=== PATIENT | male | born 1950 | race Caucasian/White ===

== ENCOUNTER 2016-02-21 13:28 | Inpatient (IN) | payer OTHER ==
[~2016-02-21] VITALS: Ht 170.2 cm; Wt 75.0 kg
[~2016-02-21 13:28] MED LIST: ALBU2.5V3 NEB; ASPI-664 PO; CARV3.1260 PO; FAMO-18 PO; FER325 PO; LANT3I SC; LISI-313 PO; PARO-37 PO; SIMV20TA97 PO; WARF2TAB78 PO; [UNRECOGNIZED DRUG - CODE] PO
[2016-02-21 13:40] VITALS: Ht 170.2 cm; Wt 75.0 kg
[2016-02-21] MEDS ORDERED: VLP250480 PO (14:34)
[2016-02-21 14:37] LABS: ALBUMIN 2.8 g/dl (3.3-4.9)
[2016-02-21 14:38] LABS: INR 3.52; POTASSIUM 4.5 mmol/L (3.5-5.1); PROTIME 35.8 Sec (12.2-14.2); PT RATIO 2.8
[2016-02-21 14:39] LABS: PARTIAL THROMBOPLASTIN TIME 51.4 Sec (25.0-35.0)
[2016-02-21 14:40] LABS: ALBUMIN/GLOBULIN RATIO 0.75; BILIRUBIN,INDIRECT 0.3 mg/dl (0-1.1); BILIRUBIN,TOTAL 0.3 mg/dl (0.2-1.3); CREATININE 0.97 mg/dl (0.61-1.24); TOTAL PROTEIN 6.5 g/dl (6.1-8.1)
[2016-02-21 14:41] LABS: CALCIUM 8.3 mg/dl (8.4-10.2)
[2016-02-21 14:54] LABS: HEMATOCRIT 24.3 % (42.0-52.0); HEMOGLOBIN 7.9 g/dl (14.0-18.0); MEAN CORPUSCULAR HEMOGLOBIN 30.9 pg (29.0-33.0); MEAN CORPUSCULAR HGB CONC 32.5 g/dl (32.0-37.0); MEAN PLATELET VOLUME 7.9 fl (7.4-10.4); PLATELET COUNT 494 10^3/UL (140-440); RED BLOOD COUNT 2.55 10^6/ul (4.70-6.10); RED CELL DISTRIBUTION WIDTH 16.4 % (11.5-14.5); UNCORRECTED WBC 14.2 10^3/ul (4.8-10.8); WHITE BLOOD COUNT 14.2 10^3/ul (4.8-10.8)
[2016-02-21 15:08] LABS: CONDITION 1; LH ANALYZER COMMENTS 1
--- NOTE | 2016-02-21 15:17 | RADRPT ---
PROCEDURE: XR Femur. CLINICAL INDICATION: Pain TECHNIQUE: AP and lateral views of the left femur were performed. COMPARISON: None. FINDINGS: There is normal mineralization and alignment. There is a intertrochanteric fracture of the right pro ximal femur with minimal displacement . There is joint space narrowing of the right hip. The soft tissues are unremarkable. Vascular calcifications are present. IMPRESSION: 1. Intertrochanteric fracture of the right proximal femur with minimal displacement of the fracture fragments. RPTAT: HSM .Latoya Jose MD, Date Time Electronically viewed and signed by .Latoya Jose MD, on 02/21/2016 15:17 .M/
--- NOTE | 2016-02-21 15:40 | RADRPT ---
PROCEDURE: US Lower extremity Venous. CLINICAL INDICATION: Right leg swelling TECHNIQUE: Multiple sonographic images of the right lower extremity deep venous system was obtaine d utilizing grayscale, color-flow, compressive sonography and doppler imaging with augmentation. Th e images were reviewed on a PACS workstation. COMPARISON: None. FINDINGS: The right common femoral vein and right proximal superficial femoral vein are partially compressible , consistent with partial DVT. There is normal compressibility and flow within the mid and distal superficial femoral, posterior ti bial, peroneal and popliteal veins. RPTAT: AA IMPRESSION: Partial DVT of the right common femoral vein and right proximal superficial femoral vein. A call report was made and the findings discussed with Dr. Urban at 02/21/2016 3:38:40 PM. .Red Ahn MD, MD Date Time Electronically viewed and signed by .Red Ahn MD, MD on 02/21/2016 15:40 .S/
--- NOTE | 2016-02-21 16:20 | ERA ---
ER Documentation Chief Complaint Date/Time DATE: 02/21/16 TIME: 16:14 Chief Complaint YELLOW TINGED SKIN AND SWELLING NOTICED LAST NIGHT ON RT UPPER LEG HPI Patient is a 65-year-old male who is bedridden. He was brought in by his today because she noted that his right lower extremity was yellowish in color and swollen. She does not know why it is like this. She states he has not fallen or had any trauma to the lower extremity. Unfortunately the patient is not able to speak secondary to a prior stroke. She states he has not had any recent fevers, vomiting, or diarrhea. Unfortunately this is the limitation of the patient's history. ROS All systems reviewed and are negative except as per history of present illness. Medications Home Meds Reported Medications Valproic Acid* (Valproic Acid* Liq) 250 Mg/5 Ml Syrup, 500 MG PO TID, ML 02/21/16 Simvastatin* (Zocor*) 20 Mg Tablet, 20 MG PO QHS, #30 TAB 09/11/15 Warfarin Sodium* (Coumadin*) 2 Mg Tablet, 2 MG PO DAILY, TAB 09/11/15 Lisinopril* (Lisinopril*) 5 Mg Tablet, 5 MG PO BID, #30 TAB 09/11/15 Insulin Glargine* (Lantus*) 100 Unit/Ml Soln, 5 UNIT SC HS, EA 12/10/13 Paroxetine Hcl* (Paroxetine*) 20 Mg Tablet, 20 MG PO DAILY, TAB 12/10/13 Ferrous Sulfate* (Ferrous Sulfate*) 325 Mg Tabec, 325 MG PO BID, TAB 12/10/13 Famotidine* (Pepcid*) 20 Mg Tablet, 20 MG PO DAILY, TAB 12/10/13 Aspirin* (Aspirin* EC) 81 Mg Tablet.dr, 81 MG PO DAILY, TAB 12/10/13 Discontinued Reported Medications Albuterol Sulfate* (Albuterol Sulfate* Neb) 0.083%-3 Ml Neb, 2.5 MG NEB Q6 Y for WHEEZING AND SOB, #30 VIAL 09/11/15 Carvedilol* (Carvedilol*) 3.125 Mg Tablet, 3.125 MG PO BID, #60 TAB 09/11/15 Valproic Acid* (Valproic Acid*) 250 Mg Capsule, 500 MG PO TID, CAP 09/11/15 Allergies Allergies: Coded Allergies: No Known Allergy (Verified , 02/21/16) PMhx/Soc History of Surgery: Yes (CABG 2003) Anesthesia Reaction: No Hx Neurological Disorder: Yes (PARALYSIS/APHAGIA S/P STOKE 2007) Hx Respiratory Disorders: No Hx Cardiac Disorders: Yes (HTN HDL) Hx Psychiatric Problems: No Hx Miscellaneous Medical Probl: Yes (DM) Hx Alcohol Use: No Hx Substance Use: No Hx Tobacco Use: Yes Smoking Status: Former smoker FmHx Family History: No diabetes Physical Exam Vitals Vital Signs Date Time Temp Pulse Resp B/P Pulse Ox O2 Delivery O2 Flow Rate FiO2 02/21/16 13:40 98.2 72 18 116/58 99 Physical Exam Const: Well-developed well-nourished male who appears chronically ill lying on the bed in no acute distress Head: Atraumatic normocephalic Eyes: Normal Conjunctiva ENT: Normal External Ears, Nose and Mouth. Resp: Clear to auscultation bilaterally, poor inspiratory effort Cardio: Regular rate and rhythm, no murmurs Abd: Soft, non tender, non distended. Normal bowel sounds Skin: Yellow-green discoloration of the right thigh consistent with an old bruise Ext: No cyanosis, edema of the right femur Neur: Awake Result Diagram: 02/21/16 1359 02/21/16 1359 Results 24 hrs Laboratory Tests Test 02/21/16 13:59 Activated Partial Thromboplast Time 51.4Sec Alanine Aminotransferase (ALT/SGPT) 17IU/L Albumin 2.8g/dl Albumin/Globulin Ratio 0.75 Alkaline Phosphatase 57IU/L Anion Gap 16 Aspartate Amino Transf (AST/SGOT) 17IU/L Blood Morphology Comment Blood Urea Nitrogen 47mg/dl Calcium Level 8.3mg/dl Carbon Dioxide Level 32mmol/L Chloride Level 106mmol/L Creatinine 0.97mg/dl Direct Bilirubin 0.00mg/dl Globulin 3.70g/dl Glucose Level 245mg/dl Hematocrit 24.3% Hemoglobin 7.9g/dl INR International Normalized Ratio 3.52 Indirect Bilirubin 0.3mg/dl Mean Corpuscular Hemoglobin 30.9pg Mean Corpuscular Hemoglobin Concent 32.5g/dl Mean Corpuscular Volume 95.0fl Mean Platelet Volume 7.9fl Platelet Count 11241^3/UL Potassium Level 4.5mmol/L Prothrombin Time 35.8Sec Prothrombin Time Ratio 2.8 Red Blood Count 2.5510^6/ul Red Cell Distribution Width 16.4% Sodium Level 149mmol/L Total Bilirubin 0.3mg/dl Total Protein 6.5g/dl White Blood Count 14.210^3/ul Procedures/MDM Doppler ultrasound revealed acute DVT of the right lower extremity. X-ray of the right femur revealed an intertrochanteric fracture of the right hip. The is at the bedside has been updated of his findings. The orthopedic doctor has been consulted as has hospitalist for admission. Departure Diagnosis: Primary Impression: Femur fracture, right Qualified Code: S72.141A - Closed displaced intertrochanteric fracture of right femur, initial encounter Additional Impressions: Deep vein thrombosis Qualified Code: I82.4Y1 - Acute deep vein thrombosis (DVT) of proximal vein of right lower extremity CVA, old, aphasia Condition: Fair JEREMIAH CHOPRA Feb 21, 2016 16:20
[2016-02-21] MEDS ORDERED: NITROGLYCERIN (SL) 0.4 MG TAB SL PRN (16:30)
[2016-02-21] MEDS ORDERED: LORAZEPAM 2 MG INJ IV PRN ×2 (16:30→19:30)
[2016-02-21] MEDS ORDERED: NA PHOSPHATE/BIPHOS 133 ML ENEMA PR PRN (16:30)
[2016-02-21] MEDS ORDERED: DOCUSATE SODIUM 100 MG CAP PO PRN (16:30)
[2016-02-21] MEDS ORDERED: ALBUTEROL/IPRATROPIUM (NEB) 3 ML AMP HHN PRN (16:30)
[2016-02-21] MEDS ORDERED: NACL 0.9% 3 ML SYG IV SCH (16:30)
[2016-02-21] MEDS ORDERED: ONDANSETRON 4 MG INJ IV PRN ×2 (16:30)
[2016-02-21] MEDS ORDERED: MAGNESIUM HYDROXIDE 30ML CUP PO PRN (16:30)
[2016-02-21] MEDS ORDERED: ACETAMINOPHEN 325 MG TAB PO PRN ×2 (16:30)
[2016-02-21] MEDS ORDERED: HYDROCODONE/APAP (5/325) TAB PO PRN (16:30)
[2016-02-21] MEDS ORDERED: hydrALAzine 20 MG INJ IV PRN (16:30)
[2016-02-21] MEDS ORDERED: GLUCAGON 1 MG INJ IM PRN (17:00)
[2016-02-21] MEDS ORDERED: GLUCOSE GEL 15 GRAM TUBE PO PRN ×2 (17:00)
[2016-02-21] MEDS ORDERED: GLUCOSE GEL 15 GRAM TUBE BUCCAL PRN (17:00)
[2016-02-21] MEDS ORDERED: DEXTROSE 50% 50 ML SYRINGE IV PRN ×2 (17:00)
[2016-02-21 17:49] LABS: BASOPHIL # 0.1 10^3/ul (0.0-0.1); HYPOCHROMASIA 1+; LYMPHOCYTES # 2.4 10^3/ul (0.8-2.9); MONOCYTE # 1.7 10^3/ul (0.3-0.9); NEUTROPHIL # 9.7 10^3/ul (1.6-7.5)
[2016-02-21 18:20] VITALS: BP 134/60; PULSE 69; RESP 16
[2016-02-21] MEDS: SOD CHLORIDE 0.9% 1,000 ML IV SCH (18:36)
[2016-02-21 20:00] VITALS: BP 136/74; PULSE 72; TEMP 98.2
[2016-02-21 20:17] VITALS: BP 130/58; PULSE 74; RESP 18
--- NOTE | 2016-02-21 20:17 | HP ---
DATE OF ADMISSION: 02/21/2016 CHIEF COMPLAINT: Right lower-extremity swelling and yellow skin. HISTORY OF PRESENT ILLNESS: A 65-year-old male with past medical history, based on records, of GERD , high cholesterol, possible seizure disorder, coronary artery disease status post CABG in 2003, hyp ertension, diabetes type 2, and prior stroke. He is bedbound and nonspeaking, who was brought in by because of right lower-extremity swelling and yellow skin. denies any trauma to the area . She does not know why the right lower extremity has been swollen, but she noticed it today and br ought him in. She says he has not fallen at home either. Patient, again, is unable to speak second zohaib to prior stroke. When he came in today, he had x-ray performed of the right lower extremity shanta t showed intertrochanteric fracture of the right proximal femur, with minimal displacement of the fr acture fragments, and the orthopedic surgeon was consulted; still waiting for him to see the patient . Per , the patient did deny fevers and chills, no nonbilious or bloody vomiting. No diarrhea, no constipation. PAST MEDICAL HISTORY: As stated above. ALLERGIES: NO KNOWN DRUG ALLERGIES. MEDICATIONS AT HOME: 1. Warfarin 2 mg daily. 2. Ferrous sulfate 325 mg b.i.d. 3. Lisinopril 5 mg b.i.d. 4. Zocor 20 mg at bedtime. 5. Aspirin 81 mg daily. 6. Paroxetine 20 mg daily. 7. Valproic acid 500 mg t.i.d. 8. Pepcid 20 mg daily. 9. Lantus 5 units subQ at bedtime. PAST SURGICAL HISTORY: A CABG back in 2003. SOCIAL HISTORY: Former smoker. Negative for IV drug abuse or alcohol. FAMILY HISTORY: Noncontributory. PHYSICAL EXAMINATION: VITAL SIGNS: T-max 98.2, pulse 72, respirations 18, blood pressure 116/58, saturating at 98% on sapphire m air. GENERAL: The patient is lying in bed sleeping presently. HEENT: Pupils equal, round, react to light. Extraocular muscles intact. NECK: Supple, no thyromegaly. LUNGS: Clear to auscultation bilaterally. CARDIOVASCULAR: S1, S2 heard. No rubs or gallops. ABDOMEN: Soft, nontender, nondistended. Normal bowel sounds. No rebound or guarding. MUSCULOSKELETAL: There is some swelling and decreased range of motion of the right lower extremity, with some yellow-green discoloration of the right thigh. No lower-extremity edema bilaterally. NEUROLOGIC: No focal deficits. LABORATORIES: WBC 14.2, hemoglobin 7.9, hematocrit 24.3, platelets 494,000. Sodium 149, potassium 4.5, chloride 106, CO2 32, BUN 47, creatinine 0.97, glucose 245. Lactic acid was not monitored. LF Ts are normal. There is also a lower extremity Doppler study that shows partial DVT in the right co mmon femoral vein and right proximal superficial femoral vein, as well. ASSESSMENT AND PLAN: This is a 65-year-old male coming in with right lower extremity swelling, with signs of right intertrochanteric femur fracture and partial deep venous thrombosis, as well, in th e right lower extremity. 1. Right lower extremity swelling, again, secondary to fracture and DVT. Admit to med/surg floor. Get an orthopedic surgery consult, pain control medications with [place] and morphine p.r.n., antieme tic control with Zofran. Check TSH, A1c, lipid panel, IV fluids as well. 2. Hypernatremia. We will switch fluids to half-normal saline as well. 3. Lower extremity deep venous thrombosis. Since the patient may undergo orthopedic surgery, will hold off on anticoagulation for now. Patient was taking Coumadin at home, presumably for his stroke . It is unclear if this clot is new. After the surgery, patient will most likely need to be on ant icoagulation for that. 4. History of gastroesophageal reflux disease. Continue Pepcid. 5. History of coronary artery disease with CABG in the past. Continue to monitor for now, monitor vital signs very carefully, hydralazine is written for p.r.n. systolic greater than 160. 6. History of seizure disorder. Again, because we are not sure if the patient fell, although the p atient is on valproic acid, will add Ativan 1 mg IV q.1h. p.r.n. seizure activity, check an EEG as w ell, to make sure there was no seizure activity. 7. Prior stroke. Continue to monitor for now. Will hold aspirin, given the fact the patient may n eed surgery. 8. Gastrointestinal prophylaxis. Again, as mentioned. 9. Deep venous thrombosis prophylaxis. For now, SCDs. Will start the patient on heparin drip or L ovenox after the surgery for the lower-extremity clot, as well. Get PT, OT consults as well. Dictated By: ENID LLAMAS/AVNI Conf#: [id number] DID#: [id number]
[2016-02-21] MEDS: VALPROIC ACID LIQUID CUP 250 MG/5 ML CUP PO SCH (21:05)
[2016-02-21] MEDS: FERROUS SULFATE (EC) 325 MG TAB PO SCH (21:05)
[2016-02-21] MEDS: ATORVASTATIN 10 MG TAB PO SCH (21:05)
[2016-02-21] MEDS: INSULIN GLARGINE [LANtus] 3 ML PEN SC SCH (21:08)
[2016-02-21] MEDS: INSULIN ASPART [NOVOLOG] 3 ML PEN SC SCH (21:10)
[2016-02-22] VITALS (8 sets, daily range): BP systolic 119–151; BP diastolic 58–70; PULSE 62–68; RESP 16–20
[2016-02-22] MEDS: INSULIN ASPART [NOVOLOG] 3 ML PEN SC SCH ×6 (01:20→20:18)
[2016-02-22] MEDS: SOD CHLORIDE 0.9% 1,000 ML IV SCH (03:00)
[2016-02-22] MEDS: morphine 2 MG INJ IV PRN ×2 (04:12→22:26)
[2016-02-22 05:50] LABS: INR 3.15; PROTIME 32.8 Sec (12.2-14.2); PT RATIO 2.6
[2016-02-22 06:03] LABS: BASOPHILS % 0.3 % (0.0-2.0); EOSINOPHILS # 0.2 10^3/ul (0.0-0.5); EOSINOPHILS % 1.4 % (0.0-7.0); HEMATOCRIT 24.1 % (42.0-52.0); HEMOGLOBIN 8.1 g/dl (14.0-18.0); LYMPHOCYTES # 2.9 10^3/ul (0.8-2.9); LYMPHOCYTES % 23.6 % (15.0-51.0); MEAN CORPUSCULAR HGB CONC 33.5 g/dl (32.0-37.0); MEAN CORPUSCULAR VOLUME 95.5 fl (82.0-101.0); MEAN PLATELET VOLUME 7.7 fl (7.4-10.4); MONOCYTE # 1.8 10^3/ul (0.3-0.9); MONOCYTES % 14.4 % (0.0-11.0); NEUTROPHIL # 7.5 10^3/ul (1.6-7.5); NEUTROPHILS % 60.3 % (39.0-77.0); PLATELET COUNT 497 10^3/UL (140-440); RED BLOOD COUNT 2.53 10^6/ul (4.70-6.10); RED CELL DISTRIBUTION WIDTH 16.1 % (11.5-14.5); UNCORRECTED WBC 12.4 10^3/ul (4.8-10.8); WHITE BLOOD COUNT 12.4 10^3/ul (4.8-10.8)
[2016-02-22 06:15] LABS: CONDITION 1; LH ANALYZER COMMENTS 1
[2016-02-22 06:28] LABS: THYROID STIMULATING HORMONE 3.86 MIU/L (0.465-4.680)
[2016-02-22 07:39] LABS: POTASSIUM 4.6 mmol/L (3.5-5.1)
[2016-02-22 07:42] LABS: CREATININE 0.75 mg/dl (0.61-1.24)
[2016-02-22 07:43] LABS: CALCIUM 8.4 mg/dl (8.4-10.2); MAGNESIUM 2.6 mg/dl (1.7-2.5); PHOSPHORUS 3.8 mg/dl (2.5-4.9)
[2016-02-22] MEDS: FAMOTIDINE 20 MG TAB PO SCH (08:56)
[2016-02-22] MEDS: PAROXETINE 20 MG TAB PO SCH (08:56)
[2016-02-22] MEDS: FERROUS SULFATE (EC) 325 MG TAB PO SCH ×2 (08:56→20:22)
[2016-02-22] MEDS: VALPROIC ACID LIQUID CUP 250 MG/5 ML CUP PO SCH ×3 (08:57→20:22)
[2016-02-22] MEDS ORDERED: WARFARIN 2 MG TAB PO SCH (09:00)
[2016-02-22] MEDS ORDERED: ASPIRIN (EC) 81 MG TAB PO SCH (09:00)
[2016-02-22] MEDS: DEXTROSE 5% 1,000 ML IV SCH (10:40)
--- NOTE | 2016-02-22 10:42 | PN ---
Date/Time of Note Date/Time of Note DATE: 02/22/16 TIME: 10:39 Assessment/Plan VTE Prophylaxis VTE Prophylaxis Intervention: SCD's Lines/Catheters IV Catheter Type (from Nrs): Peripheral IV Urinary Cath still in place: No Assessment/Plan Chief Complaint/Hosp Course ASSESSMENT AND PLAN: 65-year-old male coming in with right lower extremity swelling, with signs of right intertrochanteric femur fracture and partial deep venous thrombosis, as well, in the right lower extremity. 1. Right lower extremity swelling, again, secondary to fracture and DVT. - f/u orthopedic surgery consult rec's, - pain control medications with [place] and morphine p.r.n., antiemetic control with Zofran. - f/u TSH, A1c, lipid panel, IV fluids as well. 2. Hypernatremia - still present - switch to D5W IVF's, monitor Na levels. 3. Lower extremity deep venous thrombosis. Patient was taking Coumadin at home , presumably for his stroke. It is unclear if this clot is new. - Since the patient may undergo orthopedic surgery, will hold off on anticoagulation for now. - will also order for IVC filter placement. - consider anticoagulation after surgery 4. History of gastroesophageal reflux disease. Continue Pepcid. 5. History of coronary artery disease with CABG in the past. - Continue to monitor for now, monitor vital signs very carefully, hydralazine is written for p.r.n. systolic greater than 160. 6. History of seizure disorder. Again, because we are not sure if the patient fell, although the patient is on valproic acid, will add Ativan 1 mg IV q.1h. p.r.n. seizure activity, check an EEG as well, to make sure there was no seizure activity. 7. Prior stroke. Continue to monitor for now. Will hold aspirin, given the fact the patient may need surgery. 8. Gastrointestinal prophylaxis. Again, as mentioned. 9. Deep venous thrombosis prophylaxis. For now, SCDs. Will start the patient on heparin drip or Lovenox after the surgery for the lower-extremity clot, as well. Get PT, OT consults as well. Problems: Subjective 24 Hr Interval Summary Free Text/Dictation No acute events overnight, awaiting ortho consult. Exam/Review of Systems Vital Signs Vitals Vital Signs Date Time Temp Pulse Resp B/P Pulse Ox O2 Delivery O2 Flow Rate FiO2 1/8/17 07:34 97.7 62 18 128/58 97 02/21/16 20:17 Room Air Intake and Output 02/21/16 02/21/16 02/22/16 15:00 23:00 07:00 Intake Total 1300 ml Output Total 200 ml 1500 ml Balance -200 ml -200 ml Exam GENERAL: The patient is lying in bed sleeping presently. HEENT: Pupils equal, round, react to light. Extraocular muscles intact. NECK: Supple, no thyromegaly. LUNGS: Clear to auscultation bilaterally. CARDIOVASCULAR: S1, S2 heard. No rubs or gallops. ABDOMEN: Soft, nontender, nondistended. Normal bowel sounds. No rebound or guarding. MUSCULOSKELETAL: There is some swelling and decreased range of motion of the right lower extremity, with some yellow-green discoloration of the right thigh. No lower-extremity edema bilaterally. NEUROLOGIC: No focal deficits. Results Result Diagram: 02/22/16 0457 02/22/16 0457 Results 24 hrs Laboratory Tests Test 02/21/16 13:50 02/21/16 13:59 02/21/16 18:19 02/21/16 20:57 Free Thyroxine 1.23 Activated Partial Thromboplast Time 51.4 H Alanine Aminotransferase (ALT/SGPT) 17 Albumin 2.8 L Albumin/Globulin Ratio 0.75 Alkaline Phosphatase 57 Anion Gap 16 Aspartate Amino Transf (AST/SGOT) 17 Band Neutrophils % 2.0 Basophils # 0.1 Basophils % 1.0 Blood Morphology Comment Blood Urea Nitrogen 47 H Calcium Level 8.3 L Carbon Dioxide Level 32 H Chloride Level 106 Creatinine 0.97 Direct Bilirubin 0.00 Globulin 3.70 H Glucose Level 245 H Hematocrit 24.3 L Hemoglobin 7.9 L Hypochromasia 1+ INR International Normalized Ratio 3.52 Indirect Bilirubin 0.3 Lymphocytes # 2.4 Lymphocytes % 17.0 Macrocytosis 1+ Mean Corpuscular Hemoglobin 30.9 Mean Corpuscular Hemoglobin Concent 32.5 Mean Corpuscular Volume 95.0 Mean Platelet Volume 7.9 Monocytes # 1.7 H Monocytes % 12.0 H Neutrophils # 9.7 H Neutrophils % 68.0 Platelet Count 494 #H Potassium Level 4.5 Prothrombin Time 35.8 H Prothrombin Time Ratio 2.8 Red Blood Count 2.55 L Red Cell Distribution Width 16.4 H Sodium Level 149 H Total Bilirubin 0.3 Total Protein 6.5 White Blood Count 14.2 #H Bedside Glucose 249 H 235 H Test 02/22/16 01:16 02/22/16 04:39 02/22/16 04:57 02/22/16 08:55 Bedside Glucose 185 140 119 Anion Gap 14 Basophils # 0.0 Basophils % 0.3 Blood Morphology Comment Blood Urea Nitrogen 39 H Calcium Level 8.4 Carbon Dioxide Level 31 Chloride Level 110 Cholesterol Level 88 L Cholesterol/HDL Ratio 4.0 Creatinine 0.75 Eosinophils # 0.2 Eosinophils % 1.4 Glucose Level 122 # HDL Cholesterol 22 L Hematocrit 24.1 L Hemoglobin 8.1 L Hemoglobin A1c 5.9 INR International Normalized Ratio 3.15 LDL Cholesterol, Calculated 47 Lymphocytes # 2.9 Lymphocytes % 23.6 Magnesium Level 2.6 H Mean Corpuscular Hemoglobin 32.0 Mean Corpuscular Hemoglobin Concent 33.5 Mean Corpuscular Volume 95.5 Mean Platelet Volume 7.7 Monocytes # 1.8 H Monocytes % 14.4 H Neutrophils # 7.5 Neutrophils % 60.3 Nucleated Red Blood Cells # 0.0 Nucleated Red Blood Cells % 0.0 Phosphorus Level 3.8 Platelet Count 497 H Potassium Level 4.6 Prothrombin Time 32.8 H Prothrombin Time Ratio 2.6 Red Blood Count 2.53 L Red Cell Distribution Width 16.1 H Sodium Level 150 H Thyroid Stimulating Hormone (TSH) 3.860 Triglycerides Level 93 White Blood Count 12.4 H Medications Medications Current Medications Ondansetron HCl (Zofran Inj) 4 mg Q6H PRN IV NAUSEA AND/OR VOMITING; Start 02/20 at 16:30 Acetaminophen (Tylenol Tab) 650 mg Q6H PRN PO PAIN LEVEL 1-3 OR FEVER; Start at 16:30 Acetaminophen/ Hydrocodone Bitart ([place] (5/325)) 1 tab Q6H PRN PO MODERATE PAIN LEVEL 4-6; Start 02/21/16 at 16:30 Morphine Sulfate (morphine) 2 mg Q4H PRN IV SEVERE PAIN LEVEL 7-10 Last administered on 02/22/16t 04:12; Admin Dose 2 MG; Start 02/21/16 at 16:30 Docusate Sodium (Colace) 100 mg Q12H PRN PO CONSTIPATION; Start 02/21/16 at 16: 30 Magnesium Hydroxide (Milk Of Mag) 30 ml DAILY PRN PO CONSTIPATION; Start at 16:30 Sodium Biphosphate/ Sodium Phosphate (Fleet Enema) [address] CONSTIPATION; Start 02/21/16 at 16:30 Hydralazine HCl (Apresoline) 10 mg Q6H PRN IV ELEVATED BLOOD PRESSURE; Start at 16:30 Clonidine (Catapres) 0.1 mg Q6H PRN PO ELEVATED BLOOD PRESSURE; Start 02/21/16 at 16:30 Nitroglycerin (Nitroglycerin (Sl Tab) 0.4 Mg) 1 tab Q5M PRN SL ANGINA; Start at 16:30 Insulin Aspart (Novolog Insulin Pen) NOVOLOG *MILD* ALGORI... Q4 SC Last administered on 02/22/16 01:20; Admin Dose 2 UNIT; Start 02/21/16 at 17:00 Famotidine (Pepcid) 20 mg DAILY PO Last administered on 02/22/16 08:56; Admin Dose 20 MG; Start 02/22/16 at 09:00 Ferrous Sulfate (Ferrous Sulfate (Ec)) 325 mg BID PO Last administered on 08:56; Admin Dose 325 MG; Start 02/21/16 at 21:00 Insulin Glargine (Lantus) 10 unit HS SC Last administered on 02/21/16 21:08; Admin Dose 10 UNIT; Start 02/21/16 at 21:00 Paroxetine HCl (Paxil) 20 mg DAILY PO Last administered on 02/22/16 08:56; Admin Dose 20 MG; Start 02/22/16 at 09:00 Valproate Sodium (Depakene Liquid Cup) 500 mg TID PO Last administered on 08:57; Admin Dose 500 MG; Start 02/21/16 at 21:00 Atorvastatin Calcium (Lipitor) 10 mg QHS PO Last administered on 02/21/16 21:05 ; Admin Dose 10 MG; Start 02/21/16 at 21:00 Miscellaneous Information 1 ea NOTE XX ; Start 02/21/16 at 17:00 Glucose (Glutose) 15 gm Q15M PRN PO DECREASED GLUCOSE; Start 02/21/16 at 17:00 Glucose (Glutose) 22.5 gm Q15M PRN PO DECREASED GLUCOSE; Start 02/21/16 at 17:00 Dextrose (D50w Syringe) 25 ml Q15M PRN IV DECREASED GLUCOSE; Start 02/21/16 at 17:00 Dextrose (D50w Syringe) 50 ml Q15M PRN IV DECREASED GLUCOSE; Start 02/21/16 at 17:00 Glucagon (Glucagen) 1 mg Q15M PRN IM DECREASED GLUCOSE; Start 02/21/16 at 17:00 Glucose (Glutose) 15 gm Q15M PRN BUCCAL DECREASED GLUCOSE; Start 02/21/16 at 17: 00 Lorazepam 1 mg 1 mg Q1H PRN IV SEIZURES; Start 02/21/16 at 19:30 Dextrose (D5W) 1,000 ml @ 75 mls/hr [id number] IV ; Start 02/22/16 at 10:30 ENID MILLIGAN Feb 22, 2016 10:42
[2016-02-22] MEDS ORDERED: SOD CHLORIDE 0.9% 250 ML IV* ONE ×2 (11:14→12:20)
--- NOTE | 2016-02-22 11:24 | OPR ---
DATE OF OPERATION: 02/21/2016 ORTHOPEDIC CONSULTATION REQUESTING PHYSICIAN: Dr. Lopez CHIEF COMPLAINT: Right hip pain. HISTORY OF PRESENT ILLNESS: The patient is a 65-year-old male who sustained a fall, complaining of pain, stiffness, and limited ambulation with the right hip. The patient's past history is complicat ed with comorbidities including a DVT in the right lower extremity with swelling present. The patie nt has been on Coumadin for anticoagulation. Upon admission, the patient has an INR of 3.52 and hem oglobin of 7.9. PHYSICAL EXAMINATION: GENERAL: He is comfortable. NEUROVASCULAR: Status intact. EXTREMITIES: There is swelling in the right thigh. Compartments are soft. IMAGING DATA: X-ray is reviewed showing nondisplaced trochanteric fracture. RECOMMENDATION: The patient will require surgery consisting of intramedullary nailing of the right femur. The patient is at high-risk for surgery given the fact that he has a DVT in this leg. I have spoken to the hospitalist about the risks of complications for DVT and pulmonary embolus. T he patient needs to have normal coagulation parameters prior to surgery with normal INR. He may nee d to have an IVC filter prior to surgery to prevent pulmonary embolus. He also needs to have a bloo d transfusion for the low hemoglobin. I explained these findings to the patient, and we will await medical clearance before surgery. Dictated By: YOLI TELLES/AVNI Conf#: [id number] DID#: [id number]
[2016-02-22] MEDS: ATORVASTATIN 10 MG TAB PO SCH (20:22)
[2016-02-22] MEDS: INSULIN GLARGINE [LANtus] 3 ML PEN SC SCH (20:24)
[2016-02-23] VITALS (11 sets, daily range): BP systolic 123–160; BP diastolic 58–73; PULSE 57–67; RESP 16–17
[2016-02-23] MEDS: INSULIN ASPART [NOVOLOG] 3 ML PEN SC SCH ×6 (01:00→21:00)
[2016-02-23] MEDS: DEXTROSE 5% 1,000 ML IV SCH ×2 (02:29→13:10)
[2016-02-23] MEDS: morphine 2 MG INJ IV PRN (02:38)
[2016-02-23 05:21] LABS: INR 2.22; PROTIME 24.9 Sec (12.2-14.2); PT RATIO 1.9
[2016-02-23 08:08] LABS: POTASSIUM 5.1 mmol/L (3.5-5.1)
[2016-02-23 08:10] LABS: CREATININE 0.51 mg/dl (0.61-1.24)
[2016-02-23 08:11] LABS: BASOPHIL # 0.1 10^3/ul (0.0-0.1); BASOPHILS % 0.7 % (0.0-2.0); CALCIUM 8.1 mg/dl (8.4-10.2); EOSINOPHILS # 0.3 10^3/ul (0.0-0.5); HEMATOCRIT 33.2 % (42.0-52.0); HEMOGLOBIN 11.1 g/dl (14.0-18.0); LYMPHOCYTES # 2.7 10^3/ul (0.8-2.9); LYMPHOCYTES % 18.9 % (15.0-51.0); MEAN CORPUSCULAR HEMOGLOBIN 30.4 pg (29.0-33.0); MEAN CORPUSCULAR HGB CONC 33.5 g/dl (32.0-37.0); MEAN CORPUSCULAR VOLUME 90.7 fl (82.0-101.0); MONOCYTE # 1.8 10^3/ul (0.3-0.9); MONOCYTES % 12.7 % (0.0-11.0); NEUTROPHIL # 9.3 10^3/ul (1.6-7.5); NEUTROPHILS % 65.7 % (39.0-77.0); PLATELET COUNT 355 10^3/UL (140-440); RED BLOOD COUNT 3.66 10^6/ul (4.70-6.10); RED CELL DISTRIBUTION WIDTH 17.1 % (11.5-14.5); UNCORRECTED WBC 14.2 10^3/ul (4.8-10.8); WHITE BLOOD COUNT 14.2 10^3/ul (4.8-10.8)
[2016-02-23 08:21] LABS: CONDITION 1; LH ANALYZER COMMENTS 1
[2016-02-23] MEDS: FERROUS SULFATE (EC) 325 MG TAB PO SCH ×2 (09:00→21:23)
[2016-02-23] MEDS: VALPROIC ACID LIQUID CUP 250 MG/5 ML CUP PO SCH ×3 (09:42→21:23)
[2016-02-23] MEDS: FAMOTIDINE 20 MG TAB PO SCH (09:42)
[2016-02-23] MEDS: PAROXETINE 20 MG TAB PO SCH (09:43)
--- NOTE | 2016-02-23 12:18 | PN ---
Date/Time of Note Date/Time of Note DATE: 02/23/16 TIME: 12:03 Assessment/Plan VTE Prophylaxis VTE Prophylaxis Intervention: heparin Lines/Catheters IV Catheter Type (from Nrs): Peripheral IV Urinary Cath still in place: No Assessment/Plan Assessment/Plan Unfortunate chronically encephalopathic and bedbound 65 yo M with 1. Intertrochanteric fracture of the right proximal femur with minimal displacement Per , she does not recall any hx of trauma / patient has been bedbound since 2007 / we discussed risks versus benefits of proceeding with surgery / she will speak more with ortho and make a decision 2. RLE DVT: planned for IVC filter placement today , then will begin therapeutic anticoagulation with heparin which can be d/c 4-6hrs before hip surgery if they choose to proceed. 3. Chronic encephalopathy from prev CVA ST eval pending for speech assay / patient non verbal 4. Prev AR + hx of CAD s/p Cath +CABG in the past will get cardio consult as well as possible echo for cardiac clearance 5. Supratherapeutic INR Coumadin on hold / INR improving / continue close monitoring / indication unclear, will clarify 6. Leucocytosis: ?reactive from fracture Will get CXR to r/o aspiration / UA to r/o occult UTI / trend levels / no abx for now 7. Hypernatremia: ?improving / ?2/2 dehydration close monitoring / D5 8. NC anemia 2/2 chronic disease improved with transfusion / monitor Dispo: -continue supportive care / IVC filter today / more testing / cardio consult. Subjective 24 Hr Interval Summary Free Text/Dictation Patient seen and examined. spoke with in detail Subjective hx not possible: pt non-verbal Exam/Review of Systems Vital Signs Vitals Vital Signs Date Time Temp Pulse Resp B/P Pulse Ox O2 Delivery O2 Flow Rate FiO2 02/23/16 07:57 98.3 64 17 135/64 94 02/23/16 03:27 Room Air 02/22/16 19:59 2.0 Intake and Output 02/22/16 02/22/16 02/23/16 15:00 23:00 07:00 Intake Total 900 ml 0 ml 268 ml Output Total 4 ml 2 ml Balance 900 ml -4 ml 266 ml Exam Constitutional: alert, frail, non-verbal Psych: anxiety Head: atraumatic Eyes: PERRL ENMT: No mucosa pink and moist (dry) Respiratory: diminished breath sounds, No labored breathing Cardiovascular: regular rate and rhythm, No murmurs/extra sounds Gastrointestinal: bowel sounds, non-tender, soft Genitourinary - Male: nl penis, nl scrotum Musculoskeletal: joint tenderness Extremities: No edema Neurological: focal weakness (reported L sided paresis, but patient does not move any extremities for me. Patienr said not to have ambulated since 2007), No nl mental status, No nl speech, No nl strength Results Result Diagram: 02/23/16 0734 02/23/16 0734 Results 24 hrs Laboratory Tests Test 02/22/16 12:22 02/22/16 16:27 02/22/16 20:16 02/23/16 01:59 Bedside Glucose 128 136 135 119 Test 02/23/16 04:27 02/23/16 05:11 02/23/16 07:34 02/23/16 08:10 INR International Normalized Ratio 2.22 Prothrombin Time 24.9 #H Prothrombin Time Ratio 1.9 Bedside Glucose 116 121 Anion Gap 14 Basophils # 0.1 Basophils % 0.7 Blood Morphology Comment Blood Urea Nitrogen 27 #H Calcium Level 8.1 L Carbon Dioxide Level 31 Chloride Level 108 Creatinine 0.51 L Eosinophils # 0.3 Eosinophils % 2.0 Glucose Level 107 Hematocrit 33.2 #L Hemoglobin 11.1 #L Lymphocytes # 2.7 Lymphocytes % 18.9 Mean Corpuscular Hemoglobin 30.4 Mean Corpuscular Hemoglobin Concent 33.5 Mean Corpuscular Volume 90.7 Mean Platelet Volume 8.0 Monocytes # 1.8 H Monocytes % 12.7 H Neutrophils # 9.3 H Neutrophils % 65.7 Nucleated Red Blood Cells # 0.0 Nucleated Red Blood Cells % 0.0 Platelet Count 355 # Potassium Level 5.1 Red Blood Count 3.66 #L Red Cell Distribution Width 17.1 H Sodium Level 148 H White Blood Count 14.2 H Medications Medications Current Medications Ondansetron HCl (Zofran Inj) 4 mg Q6H PRN IV NAUSEA AND/OR VOMITING; Start 02/20 at 16:30 Acetaminophen (Tylenol Tab) 650 mg Q6H PRN PO PAIN LEVEL 1-3 OR FEVER; Start at 16:30 Acetaminophen/ Hydrocodone Bitart ([place] (5/325)) 1 tab Q6H PRN PO MODERATE PAIN LEVEL 4-6; Start 02/21/16 at 16:30 Morphine Sulfate (morphine) 2 mg Q4H PRN IV SEVERE PAIN LEVEL 7-10 Last administered on 02/23/16 02:38; Admin Dose 2 MG; Start 02/21/16 at 16:30 Docusate Sodium (Colace) 100 mg Q12H PRN PO CONSTIPATION; Start 02/21/16 at 16: 30 Magnesium Hydroxide (Milk Of Mag) 30 ml DAILY PRN PO CONSTIPATION; Start at 16:30 Sodium Biphosphate/ Sodium Phosphate (Fleet Enema) 133 ml DAILY PRN MO CONSTIPATION; Start 02/21/16 at 16:30 Hydralazine HCl (Apresoline) 10 mg Q6H PRN IV ELEVATED BLOOD PRESSURE; Start at 16:30 Clonidine (Catapres) 0.1 mg Q6H PRN PO ELEVATED BLOOD PRESSURE; Start 02/21/16 at 16:30 Nitroglycerin (Nitroglycerin (Sl Tab) 0.4 Mg) 1 tab Q5M PRN SL ANGINA; Start at 16:30 Insulin Aspart (Novolog Insulin Pen) NOVOLOG *MILD* ALGORI... Q4 SC Last administered on 02/22/16 01:20; Admin Dose 2 UNIT; Start 02/21/16 at 17:00 Famotidine (Pepcid) 20 mg DAILY PO Last administered on 02/23/16 09:42; Admin Dose 20 MG; Start 02/22/16 at 09:00 Ferrous Sulfate (Ferrous Sulfate (Ec)) 325 mg BID PO Last administered on 20:22; Admin Dose 325 MG; Start 02/21/16 at 21:00 Insulin Glargine (Lantus) 10 unit HS SC Last administered on 02/22/16 20:24; Admin Dose 10 UNIT; Start 02/21/16 at 21:00 Paroxetine HCl (Paxil) 20 mg DAILY PO Last administered on 02/23/16 09:43; Admin Dose 20 MG; Start 02/22/16 at 09:00 Valproate Sodium (Depakene Liquid Cup) 500 mg TID PO Last administered on 09:42; Admin Dose 500 MG; Start 02/21/16 at 21:00 Atorvastatin Calcium (Lipitor) 10 mg QHS PO Last administered on 02/22/16 20:22 ; Admin Dose 10 MG; Start 02/21/16 at 21:00 Miscellaneous Information 1 ea NOTE XX ; Start 02/21/16 at 17:00 Glucose (Glutose) 15 gm Q15M PRN PO DECREASED GLUCOSE; Start 02/21/16 at 17:00 Glucose (Glutose) 22.5 gm Q15M PRN PO DECREASED GLUCOSE; Start 02/21/16 at 17:00 Dextrose (D50w Syringe) 25 ml Q15M PRN IV DECREASED GLUCOSE; Start 02/21/16 at 17:00 Dextrose (D50w Syringe) 50 ml Q15M PRN IV DECREASED GLUCOSE; Start 02/21/16 at 17:00 Glucagon (Glucagen) 1 mg Q15M PRN IM DECREASED GLUCOSE; Start 02/21/16 at 17:00 Glucose (Glutose) 15 gm Q15M PRN BUCCAL DECREASED GLUCOSE; Start 02/21/16 at 17: 00 Lorazepam 1 mg 1 mg Q1H PRN IV SEIZURES; Start 02/21/16 at 19:30 Dextrose (D5W) 1,000 ml @ 75 mls/hr [id number] IV Last administered on 02/23/16 02:29; Admin Dose 75 MLS/HR; Start 02/22/16 at 10:30 DICKSON HONG Feb 23, 2016 12:15
[2016-02-23] MEDS ORDERED: SOD CHLORIDE 0.9% 500 ML ONE (13:21)
[2016-02-23] MEDS ORDERED: IODIXANOL LOCM 100 ML BTL ONE (13:21)
[2016-02-23] MEDS ORDERED: LIDOCAINE 1% (MDV) 20 ML INJ ONE (13:21)
--- NOTE | 2016-02-23 15:54 | RADRPT ---
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 Physician: ENID MILLIGAN Quality: Adequate Procedures: Transthoracic echocardiogram with 2D, M-Mode, and Doppler examination, no subcostal images. Indications: Shortness of breath. 2D/M Mode Doppler Measurement Value Normal Ranges Measurement Value Normal Ranges AoR Diam MM 3.2 cm AV Peak Jeramy 1.6 m/sec ACS MM 2.1 cm AV Peak PG 10.4 mmHg LVIDd 2D 3.8 3.5 - 5.6 cm LVOT Peak Jeramy 1.1 m/sec LVIDs 2D 2.5 2.1 - 4.1 cm LVOT Peak PG 4.9 mmHg LVPWd 2D 1.2 0.6 - 1.1 cm MV E Peak Jeramy 0.6 m/sec IVSd 2D 1.2 0.6 - 1.1 cm MV A Peak Jeramy 0.8 m/sec EDV 2D 61.7 cm3 MV E/A 0.7 ESV 2D 16.3 cm3 MV Decel Time 203 msec LA Dimen 2D 3.8 2.3 - 4.0 cm MV Decel Lynn 3 MV E/A 0.7 PV Peak Jeramy 1.3 m/sec PV Peak PG 7.0 mmHg Findings Left Ventricle: Normal left ventricular systolic function. Normal left ventricular cavity size. Mild concentric left ventricular hypertrophy. Ejection fraction is visually estimated at 6065 %. Tissue Doppler/Mitral Doppler indices are consistent with impaired relaxation (Stage I diastolic dysfunction). Right Ventricle: Normal right ventricular size. Normal right ventricular systolic function. Left Atrium: The left atrium is normal in size. Right Atrium: The right atrium is normal in size. Atrial Septum: Not well visualized. Mitral Valve: Minimal mitral annular calcification, mild chordal calcification noted. Trace mitral regurgitation. Aortic Valve: No hemodynamically significant aortic stenosis by doppler. Aortic cusps appear mildly calcified. Trileaflet aortic valve. No aortic regurgitation. Tricuspid Valve: Normal appearance of the tricuspid valve. Unable to obtain RVSP due to minimal presence of tricuspid regurgitation. No evidence of tricuspid regurgitation. Pulmonic Valve: Normal pulmonic valve appearance. No evidence of pulmonic regurgitation. Pericardium: Normal pericardium with no significant pericardial effusion. Aorta: Normal aortic root. IVC: The IVC is not well visualized. Pulmonary Artery: Normal pulmonary artery size. Conclusions 1.The left ventricle is normal in size and systolic function. 2.Estimated left ventricular ejection fraction of 60-65%. 3.Mild concentric left ventricular hypertrophy. Mild left ventricular diastolic dysfunction. Electronically Signed By: Home Schmidt 23-Feb-2016 15:53:16 -0800 Patient Name: SUSAN PADILLA Study Date: 22-Feb-2016 [id number]
--- NOTE | 2016-02-23 16:12 | RADRPT ---
PROCEDURE: XR Chest. CLINICAL INDICATION: Preoperative. TECHNIQUE: Single frontal view. COMPARISON: 09/11/2015. FINDINGS: There is mild atelectasis at the lung bases, left worse than right. The lungs are otherwise clear. The heart is enlarged. There is calcification in the aorta consistent with atherosclerosis. There are sternal wires. There is no pleural effusion. There is no pneumothorax. IMPRESSION: 1. Mild atelectasis at the lung bases, left worse than right. 2. Cardiomegaly. 3. Atherosclerosis. 4. Previous median sternotomy. RPTAT: QQ .Navarro Sotelo MD, MD Date Time Electronically viewed and signed by .Navarro Sotelo MD, on 02/23/2016 16:12 .R/
--- NOTE | 2016-02-23 17:29 | RADRPT ---
PROCEDURE: INFERIOR VENA CAVA FILTER PLACEMENT AND INFERIOR VENACAVOGRAM CLINICAL INDICATION: Right lower extremity deep venous thrombosis. TECHNIQUE: The procedure, risks, benefits, complications and alternatives were explained to the patient. Risks including bleeding and infection were explained. In addition, risks regarding the inferior vena cava filter including filter migration, inferior vena cava the perforation, and caval thrombosis were ex plained. The patient understood and was willing to proceed. Consent was obtained. A procedural pause was performed. The patient's name, date of , and procedure to be performed were verified. The left common femoral vein was interrogated with ultrasound. It demonstrates normal compressibilit y without evidence for venous thrombosis. The left inguinal region was prepped and draped. One perce nt lidocaine was used as local anesthesia. A 21 gauge single wall puncture needle was inserted into the left common femoral vein without difficulty. A 0.018 inch guidewire was then advanced through th e needle into the inferior vena cava with fluoroscopic guidance. A 5 Tristanian sheath was then exchange d for the needle. The original guidewire was removed and a 0.035 inch wire was then advanced into th e inferior vena cava with fluoroscopic guidance. The tract was dilated to 10 Tristanian and then the 8 F rench sheath for the inferior vena cava filter was inserted. An inferior venacavogram was performed through the sheath. Multiple digital images were obtained. 0.5 minutes of fluoroscopy time was used. The dilator was then removed. The sheath was flushed with normal saline. The introducer catheter pre loaded with the Argon Option vena cava filter was then advanced. The sheath was retracted. The vena cava filter was then released just below the origin of the renal veins. The introducer catheter was removed. The placement was confirmed by a spot film radiograph. The sheath was removed and pressure was held for approximately 10 minutes with good hemostasis. The patient tolerated the procedure well . COMPARISON: None. FINDINGS: The inferior vena cava is patent without evidence for filling defect to suggest thrombus. It has a n ormal diameter. The origin of the renal veins are at approximately at the upper L2 level. The final image demonstrates the superior tip of the inferior vena cava filter at the upper L2 level . Ultrasound images were recorded and stored in the patient's medical record. The ultrasound images d emonstrate the needle entering the left common femoral vein. IMPRESSION: 1. Inferior venacavogram performed as indicated above. 2. Successful placement of inferior vena cava filter. RPTAT: QQ .Navarro Sotelo MD, MD Date Time Electronically viewed and signed by .Navarro Sotelo MD, MD on 02/23/2016 17:29 .R/
--- NOTE | 2016-02-23 18:09 | CONS ---
DATE OF ADMISSION: 02/21/2016 DATE OF CONSULTATION: 02/23/2016 TYPE OF CONSULTATION: Cardiology. REASON FOR CONSULTATION: Cardiovascular preop evaluation. SURGICAL PROBLEM: Femoral fracture. CHIEF COMPLAINT: Leg swelling. HISTORY OF PRESENT ILLNESS: Thank you for this referral. History was obtained from discussion with his and from extensive review of the chart, discussion with Dr. Hong. This is an unfortunate [age]-year-old gentleman with complicated medical history including history of CVA, currently nonverbal, bedbound, history of coronary artery disease, status post coronary artery bypass graft in 2003, his tory of NE, diabetes. He was noted to have lower extremity swelling and yellow skin. The patient w as brought in to emergency room and workup has shown that the patient has right proximal femoral fra cture. He is being evaluated by orthopedics and is going to be scheduled for surgery pending cardio logy evaluation. Patient also was noted to have right lower extremity DVT. According to the , the patient apparently has had a DVT about 6 months ago. He has been on anticoagulation. INR was a bout 3 on admission. He had an IVC filter placement today as well. The patient himself is nonverba l, unable to give history to me. PAST MEDICAL HISTORY: Coronary artery disease, status post NE, status post bypass surgery in 2003, history of CVA, hypertension, diabetes, dyslipidemia, history of severe reflux disease. The patient overall is bedbound, nonverbal. According to the , he does not recognize her. MEDICATIONS AT HOME INCLUDE: 1. Coumadin. 2. Lisinopril. 3. Zocor. 4. Aspirin. 5. Valproic acid 6. Insulin. SURGICAL HISTORY: Bypass surgery, IVC filter placement. SOCIAL HISTORY: Former smoker. No active tobacco, alcohol or drug abuse. He is bed bound, lives w ith family. FAMILY HISTORY: No reported early coronary artery disease. REVIEW OF SYSTEMS: As above mentioned. PHYSICAL EXAMINATION: VITAL SIGNS: Temperature 98.3, heart rate of 65, blood pressure of 150/70, respiratory rate of 16, saturating 94%. HEENT: Normocephalic, atraumatic. Eyes: Does not open them to stimuli. CARDIOVASCULAR: Regular rate and rhythm. PULMONARY: With no wheezes anteriorly. GASTROINTESTINAL: Obese, soft. EXTREMITIES: Positive lower extremity edema. NEUROLOGIC: Does not answer my questions or verbalize or follow commands. LABORATORY DATA: WBC of 14.2, hemoglobin of 7.9 on admission, up to 11.1 now. Platelets of 355. I NR is 3.5 on admission, down to 2.2 today, sodium 148, potassium 5.1, BUN of 27, creatinine 0.5, glu cose 107. Ultrasound of lower extremity showed partial DVT of the right common femoral vein. DIAGNOSTIC DATA: Chest x-ray today shows mild atelectasis, left worse than right, cardiomegaly. Pr ior sternotomy. Femoral x-ray shows right proximal femoral with minimal displacement of fracture se gments. Echocardiogram read by Dr. Moya shows normal LV size and ejection fraction of 60% to 65%, m ild LVH and diastolic dysfunction. ASSESSMENT AND PLAN: 1. Cardiovascular preop evaluation. 2. Femoral neck fracture. 3. History of cerebrovascular accident. 4. History of coronary artery disease 5. History of coronary bypass graft. 6. History of myocardial infarction. 7. Hypertension. 8. Diabetes 9. Dyslipidemia. 10. Deep Venous thrombosis. 11. Status post inferior vena cava filter placement. RECOMMENDATIONS: Anticoagulation is on hold in anticipation for possible surgery. Statin will be c ontinued. Diabetic management as per internal medicine will be continued. We will place the patien t on Coreg to control the blood pressure better. This was discussed with Dr. Hong and patient's wif e in detail. Patient has multiple risk factors which will place him at moderate to high risk of car diovascular event during the surgery. He also has a very poor exercise tolerance and does not walk at all. That will place the patient at moderate to high risk of cardiovascular event. However, no further cardiac workup would be indicated or felt to be beneficial to the patient. Dictated By: JEISON LAI MD AV/NTS Conf#: [id number] DID#: [id number] CC: DICKSON HONG MD;*EndCC*
[2016-02-23] MEDS: ATORVASTATIN 10 MG TAB PO SCH (21:23)
[2016-02-23] MEDS: INSULIN GLARGINE [LANtus] 3 ML PEN SC SCH (21:36)
--- NOTE | 2016-02-23 22:33 | SP ---
DATE OF PROCEDURE: 02/23/2016 ELECTROENCEPHALOGRAM HISTORY: This is a 65-year-old male who is noncommunicative, was admitted and was found to have rig ht femoral fracture. EEG is to rule out encephalopathy. CURRENT MEDICATIONS: Not known. PROCEDURE: Utilizing a 16-channel EEG machine, cap scalp electrodes were applied in accordance with International 10-20 system. [id number] and [id number]-[id number] montages were displayed. Electrical i mpedances were measured and reported. DESCRIPTION: During resting state, posterior dominant rhythm of about 7 to 8 Hz was seen bihemisphe rically. Photic stimulation had a good response. Hyperventilation was not performed. There was no epileptiform activity noted. INTERPRETATION: This is a mildly abnormal electroencephalogram because of bihemispheric background slowing without any epileptiform activity consistent with mild encephalopathy. Please correlate the se findings with the patient's clinical picture. Dictated By: WHITNEY DANIELSON/AVNI Conf#: [id number] DID#: [id number]
[2016-02-24] MEDS: INSULIN ASPART [NOVOLOG] 3 ML PEN SC SCH ×6 (00:43→20:57)
[2016-02-24 01:37] LABS: ADD UMIC YES; URINE BILIRUBIN (Dip) NEGATIVE (NEGATIVE); URINE BLOOD (Dip) 3+ (NEGATIVE); URINE COLOR LT. YELLOW (YELLOW); URINE GLUCOSE (Dip) NEGATIVE (NEGATIVE); URINE KETONES (Dip) NEGATIVE (NEGATIVE); URINE LEUKOCYTE ESTERASE (Dip) NEGATIVE (NEGATIVE); URINE NITRITE (Dip) NEGATIVE (NEGATIVE); URINE TOTAL PROTEIN (Dip) NEGATIVE (NEGATIVE); URINE UROBILINOGEN (Dip) 4.0 E.U./dL (0.1-1.0)
[2016-02-24 02:06] LABS: BACTERIA,URINE OCCASIONAL; SQUAMOUS EPITHELIAL CELL,UR OCCASIONAL; URINE RBCS 25-50 /HPF ([, 0])
[2016-02-24] MEDS: DEXTROSE 5% 1,000 ML IV SCH ×2 (02:30→09:58)
[2016-02-24] MEDS: morphine 2 MG INJ IV PRN (03:11)
[2016-02-24 03:19] VITALS: BP 121/60; RESP 17
[2016-02-24 06:05] LABS: INR 3.33; PARTIAL THROMBOPLASTIN TIME 40.7 Sec (25.0-35.0); PROTIME 34.3 Sec (12.2-14.2); PT RATIO 2.7
[2016-02-24 07:48] VITALS: BP 131/59; RESP 16
[2016-02-24 08:17] LABS: BASOPHILS % 0.3 % (0.0-2.0); EOSINOPHILS # 0.3 10^3/ul (0.0-0.5); EOSINOPHILS % 2.8 % (0.0-7.0); HEMATOCRIT 31.7 % (42.0-52.0); HEMOGLOBIN 10.8 g/dl (14.0-18.0); LYMPHOCYTES # 2.3 10^3/ul (0.8-2.9); LYMPHOCYTES % 23.3 % (15.0-51.0); MEAN CORPUSCULAR HEMOGLOBIN 30.5 pg (29.0-33.0); MEAN CORPUSCULAR HGB CONC 34.1 g/dl (32.0-37.0); MEAN CORPUSCULAR VOLUME 89.5 fl (82.0-101.0); MONOCYTE # 1.7 10^3/ul (0.3-0.9); MONOCYTES % 16.9 % (0.0-11.0); NEUTROPHIL # 5.7 10^3/ul (1.6-7.5); NEUTROPHILS % 56.7 % (39.0-77.0); PLATELET COUNT 524 10^3/UL (140-440); RED BLOOD COUNT 3.54 10^6/ul (4.70-6.10); RED CELL DISTRIBUTION WIDTH 16.4 % (11.5-14.5)
[2016-02-24 08:21] LABS: CONDITION 1; LH ANALYZER COMMENTS 1; POTASSIUM 4.1 mmol/L (3.5-5.1)
[2016-02-24 08:24] LABS: CALCIUM 8.4 mg/dl (8.4-10.2); CREATININE 0.54 mg/dl (0.61-1.24)
[2016-02-24] MEDS: FERROUS SULFATE (EC) 325 MG TAB PO SCH ×2 (09:58→21:26)
[2016-02-24] MEDS: FAMOTIDINE 20 MG TAB PO SCH (09:58)
[2016-02-24] MEDS: VALPROIC ACID LIQUID CUP 250 MG/5 ML CUP PO SCH ×3 (09:58→21:25)
[2016-02-24] MEDS: LISINOPRIL 5 MG TAB PO SCH (09:59)
[2016-02-24] MEDS: PAROXETINE 20 MG TAB PO SCH (14:52)
--- NOTE | 2016-02-24 15:26 | PN ---
Date/Time of Note Date/Time of Note DATE: 02/24/16 TIME: 15:13 Assessment/Plan VTE Prophylaxis VTE Prophylaxis Intervention: other (supratheraputic INR) Lines/Catheters IV Catheter Type (from Nrs): Peripheral IV Urinary Cath still in place: No Assessment/Plan Assessment/Plan Unfortunate chronically encephalopathic and bedbound 65 yo M with 1. Intertrochanteric fracture of the right proximal femur with minimal displacement Per , she does not recall any hx of trauma / patient has been bedbound since 2007 / we discussed risks versus benefits of proceeding with surgery Per Cardio, patient is high risk for surgery. Will await Ortho and family's decision 2. RLE DVT: IVC filter placed successfully, commence anticoagulation if no surgery 3. Chronic encephalopathy from prev CVA patient non verbal / cleared for puree / nectar thick per ST 4. Prev [place] + hx of CAD s/p Cath +CABG in the past No evidence of acute event at this time 5. Supratherapeutic INR Coumadin on hold / INR remains elevated despite being off coumadin / continue close monitoring / no indication to intervene at this time except orto chooses to proceed wt sx. 6. Leucocytosis: reactive from fracture, resolved UA and CXR non suggestive of acute infection 7. Hypernatremia: resolved / ?2/2 dehydration close monitoring / D5 8. NC anemia 2/2 chronic disease improved with transfusion / monitor 9. Diabetes ?type 2: on low dose Lantus Good BS control so far / f/u findings once on a diet 10. 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 Dispo: -continue supportive care /plan to d/c home with HH if no surgery. Subjective 24 Hr Interval Summary Free Text/Dictation Patient seen and examined. Nursing reports no acute overnight events. Subjective hx not possible: pt non-verbal Exam/Review of Systems Vital Signs Vitals Vital Signs Date Time Temp Pulse Resp B/P Pulse Ox O2 Delivery O2 Flow Rate FiO2 02/24/16 07:48 97.3 86 16 131/59 99 02/24/16 03:19 Room Air 02/22/16 19:59 2.0 Intake and Output 02/23/16 02/23/16 02/24/16 15:00 23:00 07:00 Intake Total 920 ml Balance 920 ml Exam Constitutional: alert, frail, non-verbal Psych: anxiety Head: atraumatic Eyes: PERRL ENMT: No mucosa pink and moist (dry) Respiratory: diminished breath sounds, No labored breathing Cardiovascular: regular rate and rhythm, No murmurs/extra sounds Gastrointestinal: bowel sounds, non-tender, soft Genitourinary - Male: nl penis, nl scrotum Musculoskeletal: joint tenderness Extremities: No edema Neurological: focal weakness (reported L sided paresis, but patient does not move any extremities for me. Patienr said not to have ambulated since 2007), No nl mental status, No nl speech, No nl strength Results Result Diagram: 02/24/16 0730 02/24/16 0730 Results 24 hrs Laboratory Tests Test 02/23/16 18:02 02/23/16 21:28 02/24/16 00:23 02/24/16 00:42 Bedside Glucose 117 128 133 Urine Bacteria OCCASIONAL Urine Bilirubin NEGATIVE Urine Clarity CLEAR Urine Color LT. YELLOW Urine Glucose NEGATIVE Urine Hemoglobin 3+ H Urine Ketones NEGATIVE Urine Leukocyte Esterase NEGATIVE Urine Microscopic RBC 25-50 Urine Microscopic WBC 0-2 Urine Nitrite NEGATIVE Urine Specific K[place] 1.015 Urine Squamous Epithelial Cells OCCASIONAL Urine Total Protein NEGATIVE Urine Urobilinogen 4.0 E.U./dL H Urine pH 7.0 Test 02/24/16 04:58 02/24/16 05:13 02/24/16 07:30 02/24/16 08:22 Activated Partial Thromboplast Time 40.7 H INR International Normalized Ratio 3.33 Prothrombin Time 34.3 #H Prothrombin Time Ratio 2.7 Bedside Glucose 122 99 Anion Gap 11 Basophils # 0.0 Basophils % 0.3 Blood Morphology Comment Blood Urea Nitrogen 19 Calcium Level 8.4 Carbon Dioxide Level 32 H Chloride Level 102 Creatinine 0.54 L Eosinophils # 0.3 Eosinophils % 2.8 Glucose Level 93 Hematocrit 31.7 L Hemoglobin 10.8 L Lymphocytes # 2.3 Lymphocytes % 23.3 Mean Corpuscular Hemoglobin 30.5 Mean Corpuscular Hemoglobin Concent 34.1 Mean Corpuscular Volume 89.5 Mean Platelet Volume 7.0 L Monocytes # 1.7 H Monocytes % 16.9 H Neutrophils # 5.7 Neutrophils % 56.7 Nucleated Red Blood Cells # 0.0 Nucleated Red Blood Cells % 0.0 Platelet Count 524 #H Potassium Level 4.1 Red Blood Count 3.54 L Red Cell Distribution Width 16.4 H Sodium Level 141 White Blood Count 10.0 # Test 02/24/16 12:28 Bedside Glucose 94 Medications Medications Current Medications Ondansetron HCl (Zofran Inj) 4 mg Q6H PRN IV NAUSEA AND/OR VOMITING; Start 02/20 at 16:30 Acetaminophen (Tylenol Tab) 650 mg Q6H PRN PO PAIN LEVEL 1-3 OR FEVER; Start at 16:30 Acetaminophen/ Hydrocodone Bitart ([place] (5/325)) 1 tab Q6H PRN PO MODERATE PAIN LEVEL 4-6; Start 02/21/16 at 16:30 Morphine Sulfate (morphine) 2 mg Q4H PRN IV SEVERE PAIN LEVEL 7-10 Last administered on 02/24/16 03:11; Admin Dose 2 MG; Start 02/21/16 at 16:30 Docusate Sodium (Colace) 100 mg Q12H PRN PO CONSTIPATION; Start 02/21/16 at 16: 30 Magnesium Hydroxide (Milk Of Mag) 30 ml DAILY PRN PO CONSTIPATION; Start at 16:30 Sodium Biphosphate/ Sodium Phosphate (Fleet Enema) 133 ml DAILY PRN [place] CONSTIPATION; Start 02/21/16 at 16:30 Hydralazine HCl (Apresoline) 10 mg Q6H PRN IV ELEVATED BLOOD PRESSURE; Start at 16:30 Clonidine (Catapres) 0.1 mg Q6H PRN PO ELEVATED BLOOD PRESSURE; Start 02/21/16 at 16:30 Nitroglycerin (Nitroglycerin (Sl Tab) 0.4 Mg) 1 tab Q5M PRN SL ANGINA; Start at 16:30 Insulin Aspart (Novolog Insulin Pen) NOVOLOG *MILD* ALGORI... Q4 SC Last administered on 02/22/16 01:20; Admin Dose 2 UNIT; Start 02/21/16 at 17:00 Famotidine (Pepcid) 20 mg DAILY PO Last administered on 02/24/16 09:58; Admin Dose 20 MG; Start 02/22/16 at 09:00 Ferrous Sulfate (Ferrous Sulfate (Ec)) 325 mg BID PO Last administered on 09:58; Admin Dose 325 MG; Start 02/21/16 at 21:00 Insulin Glargine (Lantus) 10 unit HS SC Last administered on 02/23/16 21:36; Admin Dose 10 UNIT; Start 02/21/16 at 21:00 Paroxetine HCl (Paxil) 20 mg DAILY PO Last administered on 02/24/16 14:52; Admin Dose 20 MG; Start 02/22/16 at 09:00 Valproate Sodium (Depakene Liquid Cup) 500 mg TID PO Last administered on 14:52; Admin Dose 500 MG; Start 02/21/16 at 21:00 Atorvastatin Calcium (Lipitor) 10 mg QHS PO Last administered on 02/23/16 21:23 ; Admin Dose 10 MG; Start 02/21/16 at 21:00 Miscellaneous Information 1 ea NOTE XX ; Start 02/21/16 at 17:00 Glucose (Glutose) 15 gm Q15M PRN PO DECREASED GLUCOSE; Start 02/21/16 at 17:00 Glucose (Glutose) 22.5 gm Q15M PRN PO DECREASED GLUCOSE; Start 02/21/16 at 17:00 Dextrose (D50w Syringe) 25 ml Q15M PRN IV DECREASED GLUCOSE; Start 02/21/16 at 17:00 Dextrose (D50w Syringe) 50 ml Q15M PRN IV DECREASED GLUCOSE; Start 02/21/16 at 17:00 Glucagon (Glucagen) 1 mg Q15M PRN IM DECREASED GLUCOSE; Start 02/21/16 at 17:00 Glucose (Glutose) 15 gm Q15M PRN BUCCAL DECREASED GLUCOSE; Start 02/21/16 at 17: 00 Lorazepam 1 mg 1 mg Q1H PRN IV SEIZURES; Start 02/21/16 at 19:30 Dextrose (D5W) 1,000 ml @ 75 mls/hr [id number] IV Last administered on 02/24/16 09:58; Admin Dose 75 MLS/HR; Start 02/22/16 at 10:30 Carvedilol (Coreg) 3.125 mg BID PO Last administered on 02/24/16 09:58; Admin Dose 3.125 MG; Start 02/23/16 at 21:00 Lisinopril (Zestril) 5 mg DAILY PO Last administered on 02/24/16 09:59; Admin Dose 5 MG; Start 02/24/16 at 09:[address] NOTE: swallow evaluation completed; present and pt's mother in law. used housekeeper/custodian/laundry worker via phone as family primary language is [place] and does not have good comprehension in [place]. Pt with hx of dysphagia sec. to previous CVA's. Pt nonverbal. prev. on puree/nectar via spoon only. reported tolerating diet at home but pt does occasionally cough and sometimes needs to use the nebulizer. family reported that they do not want tube feeds for the pt. educated extensively on risks and s/s of asp. family appeared to understand risks and explained swallowing may continue to decline resulting in poss. asp.pna. currently pt is a full code. Puree and nectar is the safer of the diets for the pt however pt is at high risk for asp. with current diet. family wants to cont. puree/nectar via spoon. will f/up with md and rn. will follow pt 1-2 times only for education only and to train on swallow precautions such as alt. food/liquids as tends to given all food and finish and not use liquid wash down. goal will be family training on how to minimize the risk fo asp. given swallow strategies of alt. food/liquids. rec. pills to be mixed w/puree such as pudding (not custard) as this is easier for pills to be swallowed. No overt s/s of diff. with puree but unable to r/o silent asp. nectar via spoon , inconsistent coughing; rethickened with similar result. Pt seen taking po meds with puree crushed given by RN. pt masticating pills sec. to texture. mild oral residue cleared w/liquid wash down. Pt admitted sec. to femur fx. Echocardiogram Report Patient Name: SUSAN PADILLA Gender: Male Date: 1950 Study Date: 22-Feb-2016 Print Developer Automatic: TRISTIN Location: E Ref. Physician: ENID MILLIGAN Quality: Adequate Procedures: Transthoracic echocardiogram with 2D, M-Mode, and Doppler examination, no subcostal images. Indications: Shortness of breath. 2D/M Mode Doppler Measurement Value Normal Ranges Measurement Value Normal Ranges AoR Diam MM 3.2 cm AV Peak Jeramy 1.6 m/sec ACS MM 2.1 cm AV Peak PG 10.4 mmHg LVIDd 2D 3.8 3.5 - 5.6 cm LVOT Peak Jeramy 1.1 m/sec LVIDs 2D 2.5 2.1 - 4.1 cm LVOT Peak PG 4.9 mmHg LVPWd 2D 1.2 0.6 - 1.1 cm MV E Peak Jeramy 0.6 m/sec IVSd 2D 1.2 0.6 - 1.1 cm MV A Peak Jeramy 0.8 m/sec EDV 2D 61.7 cm3 MV E/A 0.7 ESV 2D 16.3 cm3 MV Decel Time 203 msec LA Dimen 2D 3.8 2.3 - 4.0 cm MV Decel [place] 3 MV E/A 0.7 PV Peak Jeramy 1.3 m/sec PV Peak PG 7.0 mmHg Findings Left Ventricle: Normal left ventricular systolic function. Normal left ventricular cavity size. Mild concentric left ventricular hypertrophy. Ejection fraction is visually estimated at 6065 %. Tissue Doppler/Mitral Doppler indices are consistent with impaired relaxation (Stage I diastolic dysfunction). Right Ventricle: Normal right ventricular size. Normal right ventricular systolic function. Left Atrium: The left atrium is normal in size. Right Atrium: The right atrium is normal in size. Atrial Septum: Not well visualized. Mitral Valve: Minimal mitral annular calcification, mild chordal calcification noted. Trace mitral regurgitation. Aortic Valve: No hemodynamically significant aortic stenosis by doppler. Aortic cusps appear mildly calcified. Trileaflet aortic valve. No aortic regurgitation. Tricuspid Valve: Normal appearance of the tricuspid valve. Unable to obtain RVSP due to minimal presence of tricuspid regurgitation. No evidence of tricuspid regurgitation. Pulmonic Valve: Normal pulmonic valve appearance. No evidence of pulmonic regurgitation. Pericardium: Normal pericardium with no significant pericardial effusion. Aorta: Normal aortic root. IVC: The IVC is not well visualized. Pulmonary Artery: Normal pulmonary artery size. Conclusions 1. The left ventricle is normal in size and systolic function. 2. Estimated left ventricular ejection fraction of 60-65%. 3. Mild concentric left ventricular hypertrophy. Mild left ventricular diastolic dysfunction. Electronically Signed By: Home Schmidt 23-Feb-2016 15:53:16 -0800 Patient Name: SUSAN PADILLA Study Date: 22-Feb-2016 DICKSON HONG Feb 24, 2016 15:24
[2016-02-24 19:10] VITALS: BP 83/51; RESP 16
[2016-02-24 20:58] VITALS: BP 154/70; PULSE 57; RESP 20
[2016-02-24] MEDS: ATORVASTATIN 10 MG TAB PO SCH (21:26)
[2016-02-24] MEDS: INSULIN GLARGINE [LANtus] 3 ML PEN SC SCH (21:31)
[2016-02-25] MEDS: INSULIN ASPART [NOVOLOG] 3 ML PEN SC SCH ×5 (00:57→22:07)
[2016-02-25] MEDS: DEXTROSE 5% 1,000 ML IV SCH ×2 (00:57→17:41)
[2016-02-25 05:21] LABS: INR 2.36; PROTIME 26.1 Sec (12.2-14.2)
[2016-02-25 05:22] LABS: PARTIAL THROMBOPLASTIN TIME 47.8 Sec (25.0-35.0)
[2016-02-25 05:25] VITALS: BP 136/63; PULSE 62; RESP 20
[2016-02-25 07:12] LABS: BASOPHILS % 0.3 % (0.0-2.0); EOSINOPHILS # 0.2 10^3/ul (0.0-0.5); EOSINOPHILS % 1.7 % (0.0-7.0); HEMATOCRIT 33.5 % (42.0-52.0); HEMOGLOBIN 11.2 g/dl (14.0-18.0); LYMPHOCYTES % 19.9 % (15.0-51.0); MEAN CORPUSCULAR HEMOGLOBIN 30.2 pg (29.0-33.0); MEAN CORPUSCULAR HGB CONC 33.4 g/dl (32.0-37.0); MEAN CORPUSCULAR VOLUME 90.6 fl (82.0-101.0); MEAN PLATELET VOLUME 7.4 fl (7.4-10.4); MONOCYTE # 1.8 10^3/ul (0.3-0.9); MONOCYTES % 17.8 % (0.0-11.0); NEUTROPHILS % 60.3 % (39.0-77.0); PLATELET COUNT 509 10^3/UL (140-440)
[2016-02-25 07:15] LABS: CONDITION 1; LH ANALYZER COMMENTS 1
[2016-02-25 07:36] LABS: POTASSIUM 4.1 mmol/L (3.5-5.1)
[2016-02-25 07:38] LABS: CREATININE 0.49 mg/dl (0.61-1.24)
[2016-02-25 07:39] LABS: CALCIUM 8.4 mg/dl (8.4-10.2)
[2016-02-25 07:49] VITALS: BP 123/85; RESP 18
[2016-02-25] MEDS: VALPROIC ACID LIQUID CUP 250 MG/5 ML CUP PO SCH ×3 (08:45→22:00)
[2016-02-25] MEDS: PAROXETINE 20 MG TAB PO SCH (08:45)
[2016-02-25] MEDS: FAMOTIDINE 20 MG TAB PO SCH (08:45)
[2016-02-25] MEDS: FERROUS SULFATE (EC) 325 MG TAB PO SCH ×2 (08:45→22:03)
[2016-02-25] MEDS: LISINOPRIL 5 MG TAB PO SCH (08:46)
[2016-02-25 08:47] VITALS: PULSE 60
--- NOTE | 2016-02-25 12:26 | PN ---
DATE: 02/25/2016 CARDIOLOGY FOLLOWUP SUBJECTIVE: Discussed with the staff, discussed with Dr. Hong. The patient's blood pressure and hea rt rate have remained stable. He remains nonverbal. MEDICATIONS: Reviewed as per medication reconciliation, personally reviewed. PHYSICAL EXAMINATION: VITAL SIGNS: Temperature 98.4, heart rate of 60, blood pressure 123/85, respiratory rate of 18, sat urating 98%. HEENT: Normocephalic, atraumatic. No acute distress. Pupils equal and round. CARDIOVASCULAR: Regular rate and rhythm. Systolic murmur. PULMONARY: With no wheezes heard. No rhonchi. GASTROINTESTINAL: Soft, nontender. EXTREMITIES: Trivial edema. NEUROLOGIC: Awake, does not answer questions, is nonverbal. LABORATORY: WBC of 10.0, hemoglobin 11.2, platelets of 509. INR is 2.36. Sodium 137, potassium 4. 1, BUN of 15, creatinine 0.49, glucose of 122. ASSESSMENT AND PLAN: 1. Cardiovascular preoperative evaluation. 2. Right proximal femoral fracture. 3. Right lower extremity deep venous thrombosis status post inferior vena cava filter placement. I NR is currently therapeutic. 4. Encephalopathy. 5. Cerebrovascular accident. 6. History of coronary artery disease, status post coronary bypass graft. 7. Diabetes. RECOMMENDATIONS: We will continue with the current cardiac care. The patient is currently optimize d from the cardiac standpoint. We are awaiting surgical recommendations. No further cardiac workup would be indicated. Dictated By: JEISON LAI MD AV/AVNI Conf#: [id number] DID#: [id number] CC: DICKSON HONG MD;*EndCC*
--- NOTE | 2016-02-25 12:51 | PN ---
Date/Time of Note Date/Time of Note DATE: 02/25/16 TIME: 12:32 Assessment/Plan VTE Prophylaxis VTE Prophylaxis Intervention: SCD's, other (therapeutic INR) Lines/Catheters IV Catheter Type (from Nrs): Peripheral IV Urinary Cath still in place: No Assessment/Plan Assessment/Plan Unfortunate chronically encephalopathic and bedbound 65 yo M with 1. Intertrochanteric fracture of the right proximal femur with minimal displacement Per , she does not recall any hx of trauma / patient has been bedbound since 2007 / we discussed risks versus benefits of proceeding with surgery Per Cardio, patient is high risk for surgery. Will await Ortho and family's decision 2. RLE DVT: IVC filter placed successfully, commence anticoagulation if no surgery 3. Chronic encephalopathy from prev CVA patient non verbal / cleared for puree / nectar thick per ST 4. Prev [place] + hx of CAD s/p Cath +CABG in the past No evidence of acute event at this time 5. Supratherapeutic INR Coumadin on hold / INR remains elevated despite being off coumadin / continue close monitoring / no indication to intervene at this time 6. Leucocytosis: reactive from fracture, resolved UA and CXR non suggestive of acute infection 7. Hypernatremia: resolved / ?2/2 dehydration close monitoring / D5 8. NC anemia 2/2 chronic disease improved with transfusion / monitor 9. Diabetes ?type 2: on low dose Lantus Good BS control so far / f/u findings once on a diet 10. 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 Dispo: -Spoke with Ortho and patient's . No surgical repair at this time. Conservative mgt only -Patient's asking for more assistance, patient is a good hospice candidate. will consult hospice to talk to her. -continue supportive care /plan to d/c home with HH if no surgery. Subjective 24 Hr Interval Summary Subjective hx not possible: pt non-verbal Exam/Review of Systems Vital Signs Vitals Vital Signs Date Time Temp Pulse Resp B/P Pulse Ox O2 Delivery O2 Flow Rate FiO2 02/25/16 08:47 60 02/25/16 07:49 98.4 18 123/85 98 02/25/16 05:25 Room Air 02/22/16 19:59 2.0 Intake and Output 02/24/16 02/24/16 02/25/16 15:00 23:00 07:00 Intake Total 30 ml 1000 ml Balance 30 ml 1000 ml Exam Constitutional: alert, frail, non-verbal Psych: anxiety Head: atraumatic Eyes: PERRL ENMT: No mucosa pink and moist (dry) Respiratory: diminished breath sounds, No labored breathing Cardiovascular: regular rate and rhythm, No murmurs/extra sounds Gastrointestinal: bowel sounds, non-tender, soft Genitourinary - Male: nl penis, nl scrotum Musculoskeletal: joint tenderness Extremities: No edema Neurological: focal weakness (reported L sided paresis, but patient does not move any extremities for me. Patienr said not to have ambulated since 2007), No nl mental status, No nl speech, No nl strength Results Result Diagram: 02/25/1630 02/25/16 0630 Results 24 hrs Laboratory Tests Test 02/24/16 17:38 02/24/16 20:56 02/25/16 00:55 02/25/16 04:48 Bedside Glucose 106 127 136 Activated Partial Thromboplast Time 47.8 H INR International Normalized Ratio 2.36 Prothrombin Time 26.1 #H Prothrombin Time Ratio 2.0 Test 02/25/16 05:50 02/25/16 06:30 Bedside Glucose 114 Anion Gap 12 Basophils # 0.0 Basophils % 0.3 Blood Morphology Comment Blood Urea Nitrogen 15 Calcium Level 8.4 Carbon Dioxide Level 30 Chloride Level 99 Creatinine 0.49 L Eosinophils # 0.2 Eosinophils % 1.7 Glucose Level 122 Hematocrit 33.5 L Hemoglobin 11.2 L Lymphocytes # 2.0 Lymphocytes % 19.9 Mean Corpuscular Hemoglobin 30.2 Mean Corpuscular Hemoglobin Concent 33.4 Mean Corpuscular Volume 90.6 Mean Platelet Volume 7.4 Monocytes # 1.8 H Monocytes % 17.8 H Neutrophils # 6.0 Neutrophils % 60.3 Nucleated Red Blood Cells # 0.0 Nucleated Red Blood Cells % 0.0 Platelet Count 509 H Potassium Level 4.1 Red Blood Count 3.70 L Red Cell Distribution Width 16.0 H Sodium Level 137 White Blood Count 10.0 Medications Medications Current Medications Ondansetron HCl (Zofran Inj) 4 mg Q6H PRN IV NAUSEA AND/OR VOMITING; Start 02/20 at 16:30 Acetaminophen (Tylenol Tab) 650 mg Q6H PRN PO PAIN LEVEL 1-3 OR FEVER; Start at 16:30 Acetaminophen/ Hydrocodone Bitart ([place] (5/325)) 1 tab Q6H PRN PO MODERATE PAIN LEVEL 4-6; Start 02/21/16 at 16:30 Morphine Sulfate (morphine) 2 mg Q4H PRN IV SEVERE PAIN LEVEL 7-10 Last administered on 02/24/16 03:11; Admin Dose 2 MG; Start 02/21/16 at 16:30 Docusate Sodium (Colace) 100 mg Q12H PRN PO CONSTIPATION; Start 02/21/16 at 16: 30 Magnesium Hydroxide (Milk Of Mag) 30 ml DAILY PRN PO CONSTIPATION; Start at 16:30 Sodium Biphosphate/ Sodium Phosphate (Fleet Enema) 133 ml DAILY PRN [place] CONSTIPATION; Start 02/21/16 at 16:30 Hydralazine HCl (Apresoline) 10 mg Q6H PRN IV ELEVATED BLOOD PRESSURE; Start at 16:30 Clonidine (Catapres) 0.1 mg Q6H PRN PO ELEVATED BLOOD PRESSURE; Start 02/21/16 at 16:30 Nitroglycerin (Nitroglycerin (Sl Tab) 0.4 Mg) 1 tab Q5M PRN SL ANGINA; Start at 16:30 Famotidine (Pepcid) 20 mg DAILY PO Last administered on 02/25/16 08:45; Admin Dose 20 MG; Start 02/22/16 at 09:00 Ferrous Sulfate (Ferrous Sulfate (Ec)) 325 mg BID PO Last administered on 08:45; Admin Dose 325 MG; Start 02/21/16 at 21:00 Insulin Glargine (Lantus) 10 unit HS SC Last administered on 02/24/16 21:31; Admin Dose 10 UNIT; Start 02/21/16 at 21:00 Paroxetine HCl (Paxil) 20 mg DAILY PO Last administered on 02/25/16 08:45; Admin Dose 20 MG; Start 02/22/16 at 09:00 Valproate Sodium (Depakene Liquid Cup) 500 mg TID PO Last administered on 08:45; Admin Dose 500 MG; Start 02/21/16 at 21:00 Atorvastatin Calcium (Lipitor) 10 mg QHS PO Last administered on 02/24/16 21: 26; Admin Dose 10 MG; Start 02/21/16 at 21:00 Miscellaneous Information 1 ea NOTE XX ; Start 02/21/16 at 17:00 Glucose (Glutose) 15 gm Q15M PRN PO DECREASED GLUCOSE; Start 02/21/16 at 17:00 Glucose (Glutose) 22.5 gm Q15M PRN PO DECREASED GLUCOSE; Start 02/21/16 at 17:00 Dextrose (D50w Syringe) 25 ml Q15M PRN IV DECREASED GLUCOSE; Start 02/21/16 at 17:00 Dextrose (D50w Syringe) 50 ml Q15M PRN IV DECREASED GLUCOSE; Start 02/21/16 at 17:00 Glucagon (Glucagen) 1 mg Q15M PRN IM DECREASED GLUCOSE; Start 02/21/16 at 17:00 Glucose (Glutose) 15 gm Q15M PRN BUCCAL DECREASED GLUCOSE; Start 02/21/16 at 17: 00 Lorazepam 1 mg 1 mg Q1H PRN IV SEIZURES; Start 02/21/16 at 19:30 Dextrose (D5W) 1,000 ml @ 75 mls/hr [id number] IV Last administered on 02/25/16 00:57; Admin Dose 75 MLS/HR; Start 02/22/16 at 10:30 Carvedilol (Coreg) 3.125 mg BID PO Last administered on 02/25/16 08:46; Admin Dose 3.125 MG; Start 02/23/16 at 21:00 Lisinopril (Zestril) 5 mg DAILY PO Last administered on 02/25/16 08:46; Admin Dose 5 MG; Start 02/24/16 at 09:00 Insulin Aspart (Novolog Insulin Pen) NOVOLOG *MILD* ALGORI... Q6 SC ; Start 12/31 at 06:00 DICKSON HONG Feb 25, 2016 12:43
--- NOTE | 2016-02-25 13:05 | PN ---
DATE: 02/24/2016 CARDIOLOGY FOLLOWUP SUBJECTIVE: The patient remains nonverbal. No new cardiac event. No reported chest pain or pressu re. MEDICATIONS: Reviewed. PHYSICAL EXAMINATION: VITAL SIGNS: Temperature 97.3, heart rate of 86, blood pressure 131/59, respiration rate of 16, sat urating 99%. HEENT: Normocephalic, atraumatic. Pupils are equal. CARDIOVASCULAR: Regular rate and rhythm. Systolic murmur. PULMONARY: With no wheezes anteriorly, with no rhonchi. GASTROINTESTINAL: Soft, nontender. No rebound. EXTREMITIES: Positive lower extremity edema. NEUROLOGIC: Awake, but nonverbal, not able to answer questions. LABORATORY: WBC of 10, hemoglobin of 10.8, platelets of 524,000, sodium 141, potassium 4.1, BUN of 19, creatinine , glucose of 93. INR is 3.3. ASSESSMENT AND PLAN: 1. Cardiovascular preop evaluation. 2. Femoral fracture. 3. History of cerebrovascular accident. 4. History of coronary artery disease, status post coronary bypass graft. 5. History of myocardial infarction. 6. Hypertension. 7. Diabetes. 8. Deep venous thrombosis of lower extremities. 9. Inferior vena cava filter placement, on anticoagulation. RECOMMENDATIONS: We will continue with the current cardiac care. Blood pressure under good control on the current regimen. Followup with surgery is recommended. Follow up with ortho's recommendati on. Dictated By: JEISON LAI MD AV/AVNI Conf#: [id number] DID#: [id number]
[2016-02-25 22:00] VITALS: BP 111/59; RESP 17
[2016-02-25] MEDS: ATORVASTATIN 10 MG TAB PO SCH (22:03)
[2016-02-25] MEDS: INSULIN GLARGINE [LANtus] 3 ML PEN SC SCH (22:10)
--- NOTE | 2016-02-25 22:50 | RADRPT ---
Vent Rate: 50 bpm RR Interval: 0 msec DE Interval: 134 msec QRS Duration: 84 msec QT Interval: 464 msec QTC Interval: 423 msec P-R-T [place]: 67 - 32 - 87 degrees Sinus bradycardia Otherwise normal ECG Electronically Signed By: Josue Lara [id number]
[2016-02-25 23:35] VITALS: BP 107/53; RESP 20
[2016-02-26] MEDS: INSULIN ASPART [NOVOLOG] 3 ML PEN SC SCH ×4 (07:20→21:00)
[2016-02-26 07:36] LABS: BASOPHILS % 0.1 % (0.0-2.0); EOSINOPHILS # 0.1 10^3/ul (0.0-0.5); EOSINOPHILS % 1.1 % (0.0-7.0); HEMOGLOBIN 12.1 g/dl (14.0-18.0); LYMPHOCYTES # 2.4 10^3/ul (0.8-2.9); MEAN CORPUSCULAR HEMOGLOBIN 30.4 pg (29.0-33.0); MEAN CORPUSCULAR HGB CONC 33.5 g/dl (32.0-37.0); MEAN CORPUSCULAR VOLUME 90.7 fl (82.0-101.0); MEAN PLATELET VOLUME 7.1 fl (7.4-10.4); MONOCYTE # 1.5 10^3/ul (0.3-0.9); MONOCYTES % 16.4 % (0.0-11.0); NEUTROPHIL # 5.1 10^3/ul (1.6-7.5); NEUTROPHILS % 56.4 % (39.0-77.0); PLATELET COUNT 539 10^3/UL (140-440); RED BLOOD COUNT 3.97 10^6/ul (4.70-6.10); RED CELL DISTRIBUTION WIDTH 16.1 % (11.5-14.5); UNCORRECTED WBC 9.1 10^3/ul (4.8-10.8); WHITE BLOOD COUNT 9.1 10^3/ul (4.8-10.8)
[2016-02-26 07:39] VITALS: BP 119/55; RESP 18
[2016-02-26 07:48] LABS: CONDITION 1; LH ANALYZER COMMENTS 1
[2016-02-26 07:58] LABS: CREATININE 0.62 mg/dl (0.61-1.24)
[2016-02-26 07:59] LABS: CALCIUM 8.8 mg/dl (8.4-10.2)
[2016-02-26] MEDS: VALPROIC ACID LIQUID CUP 250 MG/5 ML CUP PO SCH ×3 (09:39→20:57)
[2016-02-26] MEDS: FERROUS SULFATE (EC) 325 MG TAB PO SCH ×2 (09:39→20:51)
[2016-02-26] MEDS: FAMOTIDINE 20 MG TAB PO SCH (09:39)
[2016-02-26] MEDS: PAROXETINE 20 MG TAB PO SCH (09:39)
[2016-02-26] MEDS: LISINOPRIL 5 MG TAB PO SCH (09:40)
[2016-02-26 11:50] LABS: INR 1.52; PROTIME 18.4 Sec (12.2-14.2); PT RATIO 1.4
[2016-02-26 11:51] LABS: PARTIAL THROMBOPLASTIN TIME 39.2 Sec (25.0-35.0)
--- NOTE | 2016-02-26 12:10 | DS ---
DATE OF ADMISSION: 02/21/2016 DATE OF DISCHARGE: 02/26/2016 PRESENTING COMPLAINT: Right lower extremity swelling and yellow skin. ADMISSION DIAGNOSES 1. Right lower extremity swelling secondary to right intertrochanteric femoral fracture and partial deep vein thrombosis. 2. Hypernatremia. 3. Gastroesophageal reflux disease. 4. History of coronary artery disease with CABG in the past. 5. History of seizure disorder. 6. Prior cerebrovascular accident. CONSULTS ON THE CASE: 1. Dr. Gabby Fritz as well as 2. Dr. Raymundo Garrison. INTERVENTIONS: In no particular order: 1. The patient had a femoral x-ray 02/21/2016, it showed intertrochanteric fracture of the right pr oximal femur with minimal displacement of the fracture fragments. 2. He had a lower extremity venous study done on the same day, it showed partial DVT of the right c ommon femoral vein and right proximal superficial femoral vein. 3. The patient then had a 2D echocardiogram done on the same day. It showed left ventricle normal in size and systolic function and estimated left ventricular ejection fraction of 60% to 65%, mild c oncentric left ventricular hypertrophy as well as mild left ventricular diastolic dysfunction. 4. The patient also had IVC filter placed on 02/23/2016 and it was successful. 5. He also had a chest x-ray done the same date that showed: Mild atelectasis at the lung bases, le ft worse than right, cardiomegaly, atherosclerosis, previous median sternotomy. 6. Patient had EEG done that showed mildly abnormal electroencephalogram because of bihemispheric b ackground slowing without any epileptiform activity consistent with a mild encephalopathy. 7. The patient was also reviewed by speech therapy and a swallow evaluation was done. Their recomme ndations were pills to be mixed with pureed such as pudding, and puree with nectar thickened l iquid diet; however, patient remains high risk for aspiration, but this is what the family would pre dali and no use of liquid to wash down the food. 8. Please note that patient was transfused with 2 units of red blood cells as well as 2 units of fr esh frozen plasma for a hypercoagulable state with INR of 3.5 that was thought to be induced by the patient's chronic Coumadin therapy. HOSPITALIZATION COURSE: Full details are available in the chart for review. In summary, this 65-ye ar-old very unfortunate male has suffered a severe stroke back in 2003 and another one in 2007 that had left him chronically encephalopathic and bed bound. The patient also had a history of myocardia l infarction in the past and is status post CABG therapy as well. The patient is chronically bed ashley und and the is his primary caregiver and he resides at home with her. She noticed a yellowish d iscoloration of his foot and brought him to the emergency room to be evaluated where it was found th at he has sustained a nondisplaced intertrochanteric fracture of his femur and was found to have a p artial DVT despite a supratherapeutic INR. There was concerns that this DVT was probably old, how er orthopedic consultation was obtained. The orthopedic doctor recommended correction of his coagul opathy, placement of a filter and cardiology clearance prior to surgery. This was done; however, up on speaking with the patient's , as well as the tag clerk and reviewing the risks of surgery versus the benefits, considering that patient is chronically bed bound and encephalopathic the pura ent's family decided not to proceed with surgery. The orthopedic surgeon did state that the patient 's femoral fracture could heal over time, as it was a nondisplaced fracture. The family chose this o ption for care instead. All these discussions were had with the patient's in the presence of a senior research fellow. However, the patient's did report that she was finding it difficult waldo g for the patient by herself, and as she had maxed out all her current benefits I recommended hospic e care. At this point, his has yet to speak with the hospice team to determine if she would li ke to sign up, but regardless of that if his chooses not to go with hospice the patient will be discharged home back to her care and we will order for home health therapy for probable speech ther apy as well as a probable physical therapy and nursing. Dr. Fritz has stated that the patient c ould have an outpatient x-ray in a couple of weeks and his could bring the x-ray to his office to be reviewed. I have communicated this to the and she has verbalized understanding and agreem ent. FINAL DIAGNOSES: As follows: Unfortunate and chronically encephalopathic and bed bound 65-year-old male with the followin. Intertrochanteric fracture of right proximal femoral with minimal displacement. 2. Right lower extremity deep venous thrombosis, likely chronic. Status post IVC filter, on this a dmission. 3. Chronic coagulopathy that is persistent despite being off anticoagulation. Last INR is 2.3, Als o previous myocardial infarction plus history of coronary artery disease status post catheterization and CABG in the past. 4. Chronic encephalopathy from previous cardiovascular accident. 5. Reactive leukocytosis from fracture, now resolved. 6. Hyponatremia likely secondary to dehydration, resolved. 7. Chronic dysphagia secondary to cerebrovascular accident on puree with nectar thickened liquid di et. 8. Normochromic anemia secondary to chronic disease. 9. Type 2 diabetes on low-dose Lantus. 10. Post cerebrovascular accident seizures on Valproic acid. 11. Dyslipidemia, on home statin. 12. History of depression. Continued on his home Paxil therapy. DISPOSITION: Will be to home either with hospice or with home health. ACTIVITY: The patient is chronically bed bound. Follow up will be with his primary care physician as well as also as an outpatient. PLEASE NOTE: The decision as well as to put the patient back on anticoagulation, we will depend on h is latest INR level, which has been ordered stat and is still pending. If the patient's coagulopath y has not corrected despite 4 days of anticoagulation and FFP therapy the patient is likely not a sa fe candidate for anticoagulation at home. The patient has already received an IVC filter. DISCHARGE MEDICATIONS: Will include the following, but is not necessarily limited to these: 1. Lisinopril 500 p.o. b.i.d. 2. Aspirin 81 daily. 3. Pepcid 20 daily. 4. Ferrous sulfate 325 b.i.d. 5. Lantus 5 units at bedtime. 6. Paxil 20 p.o. daily. 7. Zocor 20 at bedtime. 8. Valproic acid 500 t.i.d. Overall time spent on coordinating this discharge has been about 40 minutes so far. The discharge pl anning is not concluded, I will give updates as they come along. Dictated By: DICKSON HONG MD, BA/AVNI Conf#: [id number] DID#: [id number]
--- NOTE | 2016-02-26 13:26 | PN ---
DATE: 02/26/2016 CARDIOLOGY FOLLOWUP SUBJECTIVE: No new cardiac events. The patient is nonverbal. Discussed with his . Apparently , surgery has been canceled and they want to go home. MEDICATIONS: Reviewed. PHYSICAL EXAMINATION: VITAL SIGNS: Temperature 97.8, heart rate of 64, blood pressure of ____/55, respiration rate of 18, saturating 100%. HEENT: Normocephalic, atraumatic. Pupils are equal. CARDIOVASCULAR: Regular rate and rhythm. PULMONARY: No wheezes now. GASTROINTESTINAL: Soft, nontender. EXTREMITIES: Trivial edema. NEUROLOGIC: Awake. Does not answer questions. LABORATORY: WBC of 9.1, hemoglobin 12.1, platelets of 539. Sodium 139, potassium 5, BUN of 21, cre atinine 0.62, glucose 113. INR is 1.56. ASSESSMENT AND PLAN: 1. Cardiovascular preoperative evaluation. 2. Femoral fracture. 3. Hypertension. 4. Cerebrovascular accident. 5. History of coronary artery disease with bypass graft. 6. History of myocardial infarction. 7. Hypertension. 8. Diabetes. 9. Deep venous thrombosis, status post inferior vena cava filter placement. RECOMMENDATIONS: It appears that the surgery has been canceled. Coumadin will be resumed and adjus geovany as per internal medicine. Alternative would be to place the patient on Eliquis. We will contin ue with the rest of his cardiac care. Will follow up p.r.n. Dictated By: JEISON LAI MD AV/AVNI Conf#: [id number] DID#: [id number] CC: DICKSON HONG MD; ENID MILLIGAN;*End*
[2016-02-26] MEDS ORDERED: APIX2.5T PO (16:02)
[2016-02-26 19:20] VITALS: BP 133/63; RESP 18
[2016-02-26 19:36] VITALS: BP 125/62; RESP 20
[2016-02-26] MEDS: ATORVASTATIN 10 MG TAB PO SCH (20:51)
[2016-02-26] MEDS: INSULIN GLARGINE [LANtus] 3 ML PEN SC SCH (21:03)
[2016-02-27] MEDS: INSULIN ASPART [NOVOLOG] 3 ML PEN SC SCH ×4 (07:20→21:00)
[2016-02-27 07:46] VITALS: BP 132/53; RESP 19
[2016-02-27 07:56] LABS: HEMATOCRIT 34.3 % (42.0-52.0); HEMOGLOBIN 11.4 g/dl (14.0-18.0); MEAN CORPUSCULAR HEMOGLOBIN 30.5 pg (29.0-33.0); MEAN CORPUSCULAR HGB CONC 33.3 g/dl (32.0-37.0); MEAN CORPUSCULAR VOLUME 91.4 fl (82.0-101.0); PLATELET COUNT 331 10^3/UL (140-440); RED BLOOD COUNT 3.75 10^6/ul (4.70-6.10); RED CELL DISTRIBUTION WIDTH 16.5 % (11.5-14.5); WHITE BLOOD COUNT 12.4 10^3/ul (4.8-10.8)
[2016-02-27 08:14] LABS: CONDITION 1; LH ANALYZER COMMENTS 1; SUSPECT 1
[2016-02-27 08:39] LABS: POTASSIUM 4.6 mmol/L (3.5-5.1)
[2016-02-27 08:41] LABS: CREATININE 0.54 mg/dl (0.61-1.24)
[2016-02-27 08:42] LABS: CALCIUM 8.4 mg/dl (8.4-10.2)
[2016-02-27] MEDS: VALPROIC ACID LIQUID CUP 250 MG/5 ML CUP PO SCH ×3 (09:00→22:13)
[2016-02-27] MEDS: FAMOTIDINE 20 MG TAB PO SCH (09:00)
[2016-02-27] MEDS: PAROXETINE 20 MG TAB PO SCH (09:00)
[2016-02-27] MEDS: FERROUS SULFATE (EC) 325 MG TAB PO SCH ×2 (09:01→22:11)
[2016-02-27] MEDS: LISINOPRIL 5 MG TAB PO SCH (09:01)
[2016-02-27 10:34] LABS: BASOPHIL # 0.1 10^3/ul (0.0-0.1); EOSINOPHILS # 0.1 10^3/ul (0.0-0.5); LYMPHOCYTES # 2.7 10^3/ul (0.8-2.9); MYELOCYTES # 0.1; NEUTROPHIL # 5.8 10^3/ul (1.6-7.5)
[2016-02-27] MEDS ORDERED: ALBUTEROL 0.083% (NEB) 2.5 MG/3 ML AMP HHN PRN (12:50)
--- NOTE | 2016-02-27 13:25 | PN ---
Date/Time of Note Date/Time of Note DATE: 02/27/16 TIME: 13:24 Assessment/Plan Lines/Catheters IV Catheter Type (from Nrs): Saline Lock Urinary Cath still in place: No Exam/Review of Systems Vital Signs Vitals Vital Signs Date Time Temp Pulse Resp B/P Pulse Ox O2 Delivery O2 Flow Rate FiO2 02/27/16 13:16 2.0 02/27/16 13:16 73 22 98 Nasal Cannula 02/27/16 07:46 97.1 132/53 Intake and Output 02/26/16 02/26/16 02/27/16 15:00 23:00 07:00 Intake Total 540 ml 450 ml Output Total 500 ml Balance 540 ml -50 ml Results Result Diagram: 02/27/16 0655 02/27/16 0655 Results 24 hrs Laboratory Tests Test 02/26/16 17:29 02/26/16 20:10 02/27/16 06:55 02/27/16 07:50 Bedside Glucose 138 108 95 Anion Gap 14 Band Neutrophils % 4.0 Basophils # 0.1 Basophils % 1.0 Blood Morphology Comment Blood Urea Nitrogen 23 H Calcium Level 8.4 Carbon Dioxide Level 31 Chloride Level 100 Creatinine 0.54 L Differential Comment MANUAL DIFF Eosinophils # 0.1 Eosinophils % 1.0 Glucose Level 84 Hematocrit 34.3 L Hemoglobin 11.4 L Lymphocytes # 2.7 Lymphocytes % 22.0 Mean Corpuscular Hemoglobin 30.5 Mean Corpuscular Hemoglobin Concent 33.3 Mean Corpuscular Volume 91.4 Mean Platelet Volume 8.0 Monocytes # 3.0 H Monocytes % 24.0 H Myelocytes # 0.1 Myelocytes % 1.0 H Neutrophils # 5.8 Neutrophils % 47.0 Nucleated Red Blood Cells # Nucleated Red Blood Cells % Platelet Count 331 # Potassium Level 4.6 Red Blood Count 3.75 L Red Cell Distribution Width 16.5 H Sodium Level 140 White Blood Count 12.4 #H Test 02/27/16 12:19 Bedside Glucose 144 Medications Medications Current Medications Ondansetron HCl (Zofran Inj) 4 mg Q6H PRN IV NAUSEA AND/OR VOMITING; Start 02/20 at 16:30 Acetaminophen (Tylenol Tab) 650 mg Q6H PRN PO PAIN LEVEL 1-3 OR FEVER; Start at 16:30 Acetaminophen/ Hydrocodone Bitart ([place] (5/325)) 1 tab Q6H PRN PO MODERATE PAIN LEVEL 4-6; Start 02/21/16 at 16:30 Morphine Sulfate (morphine) 2 mg Q4H PRN IV SEVERE PAIN LEVEL 7-10 Last administered on 02/24/16 03:11; Admin Dose 2 MG; Start 02/21/16 at 16:30 Docusate Sodium (Colace) 100 mg Q12H PRN PO CONSTIPATION; Start 02/21/16 at 16: 30 Magnesium Hydroxide (Milk Of Mag) 30 ml DAILY PRN PO CONSTIPATION; Start at 16:30 Sodium Biphosphate/ Sodium Phosphate (Fleet Enema) 133 ml DAILY PRN [place] CONSTIPATION; Start 02/21/16 at 16:30 Hydralazine HCl (Apresoline) 10 mg Q6H PRN IV ELEVATED BLOOD PRESSURE; Start at 16:30 Clonidine (Catapres) 0.1 mg Q6H PRN PO ELEVATED BLOOD PRESSURE; Start 02/21/16 at 16:30 Nitroglycerin (Nitroglycerin (Sl Tab) 0.4 Mg) 1 tab Q5M PRN SL ANGINA; Start at 16:30 Famotidine (Pepcid) 20 mg DAILY PO Last administered on 02/27/16 09:00; Admin Dose 20 MG; Start 02/22/16 at 09:00 Ferrous Sulfate (Ferrous Sulfate (Ec)) 325 mg BID PO Last administered on 09:01; Admin Dose 325 MG; Start 02/21/16 at 21:00 Insulin Glargine (Lantus) 10 unit HS SC Last administered on 02/26/16 21:03; Admin Dose 10 UNIT; Start 02/21/16 at 21:00 Paroxetine HCl (Paxil) 20 mg DAILY PO Last administered on 02/27/16 09:00; Admin Dose 20 MG; Start 02/22/16 at 09:00 Valproate Sodium (Depakene Liquid Cup) 500 mg TID PO Last administered on 12:17; Admin Dose 500 MG; Start 02/21/16 at 21:00 Atorvastatin Calcium (Lipitor) 10 mg QHS PO Last administered on 02/26/16 20: 51; Admin Dose 10 MG; Start 02/21/16 at 21:00 Miscellaneous Information 1 ea NOTE XX ; Start 02/21/16 at 17:00 Glucose (Glutose) 15 gm Q15M PRN PO DECREASED GLUCOSE; Start 02/21/16 at 17:00 Glucose (Glutose) 22.5 gm Q15M PRN PO DECREASED GLUCOSE; Start 02/21/16 at 17:00 Dextrose (D50w Syringe) 25 ml Q15M PRN IV DECREASED GLUCOSE; Start 02/21/16 at 17:00 Dextrose (D50w Syringe) 50 ml Q15M PRN IV DECREASED GLUCOSE; Start 02/21/16 at 17:00 Glucagon (Glucagen) 1 mg Q15M PRN IM DECREASED GLUCOSE; Start 02/21/16 at 17:00 Glucose (Glutose) 15 gm Q15M PRN BUCCAL DECREASED GLUCOSE; Start 02/21/16 at 17: 00 Lorazepam (Ativan) 1 mg Q1H PRN IV SEIZURES; Start 02/21/16 at 19:30 Carvedilol (Coreg) 3.125 mg BID PO Last administered on 02/27/16 09:01; Admin Dose 3.125 MG; Start 02/23/16 at 21:00 Lisinopril (Zestril) 5 mg DAILY PO Last administered on 02/27/16 09:01; Admin Dose 5 MG; Start 02/24/16 at 09:00 DICKSON HONG Feb 27, 2016 13:24
--- NOTE | 2016-02-27 13:44 | DS ---
Date/Time of Note Date/Time of Note DATE: 02/27/16 TIME: 13:25 Discharge Summary Admission/Discharge Info Admit Date/Time Feb 21, 2016 at 16:23 Discharge Date/Time 02/26/15 Final Diagnosis Unfortunate and chronically encephalopathic and bed bound 65-year-old male with the followin. Intertrochanteric fracture of right proximal femoral with minimal displacement. 2. Right lower extremity deep venous thrombosis, likely chronic. Status post IVC filter, on this admission. 3. Chronic coagulopathy that is persistent despite being off anticoagulation. Last INR is 2.3, Also previous myocardial infarction plus history of coronary artery disease status post catheterization and CABG in the past. 4. Chronic encephalopathy from previous cardiovascular accident. 5. Reactive leukocytosis from fracture, now resolved. 6. Hyponatremia likely secondary to dehydration, resolved. 7. Chronic dysphagia secondary to cerebrovascular accident on puree with nectar thickened liquid diet. 8. Normochromic anemia secondary to chronic disease. 9. Type 2 diabetes on low-dose Lantus. 10. Post cerebrovascular accident seizures on Valproic acid. 11. Dyslipidemia, on home statin. 12. History of depression. Continued on his home Paxil therapy. Patient Condition: Stable Consults 1. Dr. Gabby Fritz as well as 2. Dr. Raymundo Garrison. Hospital Course Please see Dictated d/c summary from for detailed hospital course Patient's discharge was delayed because supervisor hardboard are still working on insurance approval for his outpatient needs. Today however he remains stable Vital Signs Date Time Temp Pulse Resp B/P Pulse Ox O2 Delivery O2 Flow Rate FiO2 02/27/16 13:16 2.0 02/27/16 13:16 73 22 98 Nasal Cannula 02/27/16 07:46 97.1 132/53 Intake and Output 02/26/16 02/26/16 02/27/16 15:00 23:00 07:00 Intake Total 540 ml 450 ml Output Total 500 ml Balance 540 ml -50 ml Constitutional: alert, frail, non-verbal Psych: anxiety Head: atraumatic Eyes: PERRL ENMT: No mucosa pink and moist (dry) Respiratory: diminished breath sounds, No labored breathing Cardiovascular: regular rate and rhythm, No murmurs/extra sounds Gastrointestinal: bowel sounds, non-tender, soft Genitourinary - Male: nl penis, nl scrotum Musculoskeletal: joint tenderness Extremities: No edema Neurological: focal weakness (reported L sided paresis, but patient does not move any extremities for me. Patienr said not to have ambulated since 2007), No nl mental status, No nl speech, No nl strength Final diagnosis remains the same and patient remains stable when cleared for d/ c by case mgt. Home Meds Active Scripts Apixaban* (Eliquis*) 2.5 Mg Tablet, 2.5 MG PO BID for 30 Days, TAB Prov:GELYDICKSON Pardo 02/26/16 Reported Medications Valproic Acid* (Valproic Acid* Liq) 250 Mg/5 Ml Syrup, 500 MG PO TID, ML 02/21/16 Simvastatin* (Zocor*) 20 Mg Tablet, 20 MG PO QHS, #30 TAB 09/11/15 Lisinopril* (Lisinopril*) 5 Mg Tablet, 5 MG PO BID, #30 TAB 09/11/15 Insulin Glargine* (Lantus*) 100 Unit/Ml Soln, 5 UNIT SC HS, EA 12/10/13 Paroxetine Hcl* (Paroxetine*) 20 Mg Tablet, 20 MG PO DAILY, TAB 12/10/13 Ferrous Sulfate* (Ferrous Sulfate*) 325 Mg Tabec, 325 MG PO BID, TAB 12/10/13 Famotidine* (Pepcid*) 20 Mg Tablet, 20 MG PO DAILY, TAB 12/10/13 Aspirin* (Aspirin* EC) 81 Mg Tablet.dr, 81 MG PO DAILY, TAB 12/10/13 Discontinued Reported Medications Warfarin Sodium* (Coumadin*) 2 Mg Tablet, 2 MG PO DAILY, TAB 09/11/15 Albuterol Sulfate* (Albuterol Sulfate* Neb) 0.083%-3 Ml Neb, 2.5 MG NEB Q6 Y for WHEEZING AND SOB, #30 VIAL 09/11/15 Carvedilol* (Carvedilol*) 3.125 Mg Tablet, 3.125 MG PO BID, #60 TAB 09/11/15 Valproic Acid* (Valproic Acid*) 250 Mg Capsule, 500 MG PO TID, CAP 09/11/15 Follow-up Plan DISPOSITION: Will be to home with home health. Pending Labs Laboratory Tests Test 02/26/16 17:29 02/26/16 20:10 02/27/16 06:55 02/27/16 07:50 Bedside Glucose 138mg/dL (70-220) 108mg/dL (70-220) 95mg/dL (70-220) Anion Gap 14 (8-16) Band Neutrophils % 4.0% (0.0-5.0) Basophils # 0.110^3/ul (0.0-0.1) Basophils % 1.0% (0.0-2.0) Blood Morphology Comment Blood Urea Nitrogen 23mg/dl (7-20) Calcium Level 8.4mg/dl (8.4-10.2) Carbon Dioxide Level 31mmol/L (21-31) Chloride Level 100mmol/L (97-110) Creatinine 0.54mg/dl (0.61-1.24) Differential Comment MANUAL DIFF Eosinophils # 0.110^3/ul (0.0-0.5) Eosinophils % 1.0% (0.0-7.0) Glucose Level 84mg/dl (70-220) Hematocrit 34.3% (42.0-52.0) Hemoglobin 11.4g/dl (14.0-18.0) Lymphocytes # 2.710^3/ul (0.8-2.9) Lymphocytes % 22.0% (15.0-51.0) Mean Corpuscular Hemoglobin 30.5pg (29.0-33.0) Mean Corpuscular Hemoglobin Concent 33.3g/dl (32.0-37.0) Mean Corpuscular Volume 91.4fl (82.0-101.0) Mean Platelet Volume 8.0fl (7.4-10.4) Monocytes # 3.010^3/ul (0.3-0.9) Monocytes % 24.0% (0.0-11.0) Myelocytes # 0.1 Myelocytes % 1.0% (0.0-0.0) Neutrophils # 5.810^3/ul (1.6-7.5) Neutrophils % 47.0% (39.0-77.0) Nucleated Red Blood Cells # 10^3/ul (0.0-0.0) Nucleated Red Blood Cells % /100WBC (0.0-0.0) Platelet Count 00111^3/UL (140-440) Potassium Level 4.6mmol/L (3.5-5.1) Red Blood Count 3.7510^6/ul (4.70-6.10) Red Cell Distribution Width 16.5% (11.5-14.5) Sodium Level 140mmol/L (135-144) White Blood Count 12.410^3/ul (4.8-10.8) Test 02/27/16 12:19 Bedside Glucose 144mg/dL (70-220) DICKSON HONG Feb 27, 2016 13:35
--- NOTE | 2016-02-27 13:46 | PDOCDIS ---
Discharge Instructions DIAGNOSIS Discharge Diagnosis: R intertrochanteric femur fracture CONDITION Patient Condition: Stable HOME CARE INSTRUCTIONS: Special Diet: Puree diet nectar thick liquids FOLLOW UP/APPOINTMENTS Appointments 03/15/16: Patient is to get repeat Pelvic XR which his is to take to Dr Lopez's office for review. Name, Degree: Gabby Fritz MD Specialty: Orthopedic Surgery Comments: Office Address: [address] [place] [id number] Office DICKSON HONG Feb 27, 2016 13:46
--- NOTE | 2016-02-27 16:27 | PN ---
DATE: 02/27/2016 CARDIOLOGY FOLLOWUP PROGRESS NOTE SUBJECTIVE: Discussed with Dr. Hong. Discussed with his . The patient remains nonverbal. No n ew cardiac events. The patient is being discharged on Eliquis. MEDICATIONS: Reviewed as per medication reconciliation, was personally reviewed. PHYSICAL EXAMINATION: VITAL SIGNS: Temperature 97.1, heart rate of 73, blood pressure 132/53, respiration rate of 22, sat urating 98%. HEENT: Normocephalic, atraumatic. Pupils are equal. CARDIOVASCULAR: Regular rate and rhythm, systolic murmur grade I. PULMONARY: No wheezes, no rhonchi. GASTROINTESTINAL: Soft. No rebound or guarding. EXTREMITIES: With positive lower extremity edema. NEUROLOGIC: Awake, does not verbalize. PSYCHIATRIC: Appears to be calm at this point. LABORATORY: WBC of 12.4, hemoglobin 11.4, platelets of 331. Sodium 140, potassium 4.6, BUN of 23, creatinine 0.54, glucose of 84. INR yesterday was 1.52. ASSESSMENT AND PLAN 1. Hip fracture, on medical therapy. 2. Hypertension. 3. History of cerebrovascular accident. 4. History of deep venous thrombosis, on anticoagulation. 5. History of coronary artery disease. 6. History of coronary bypass graft. 7. History of myocardial infarction. 8. Hypertension. 9. Diabetes. RECOMMENDATIONS: The patient is being discharged on Eliquis for anticoagulation with Coumadin. Car vedilol will be continued. Continue the rest of his cardiac care. Outpatient followup with his [facility] physician. Dictated By: JEISON LAI MD AV/NTS Conf#: [id number] DID#: [id number] CC: DICKSON HONG MD;*EndCC*
[2016-02-27 19:13] VITALS: BP 114/53; RESP 20
[2016-02-27] MEDS: ATORVASTATIN 10 MG TAB PO SCH (22:11)
[2016-02-27] MEDS: INSULIN GLARGINE [LANtus] 3 ML PEN SC SCH (22:17)
[2016-02-28 07:19] VITALS: BP 128/62; RESP 18
[2016-02-28] MEDS: INSULIN ASPART [NOVOLOG] 3 ML PEN SC SCH ×2 (07:20→13:01)
[2016-02-28 07:23] VITALS: BP 111/54; RESP 17
[2016-02-28] MEDS: FAMOTIDINE 20 MG TAB PO SCH (08:17)
[2016-02-28] MEDS: PAROXETINE 20 MG TAB PO SCH (08:17)
[2016-02-28] MEDS: FERROUS SULFATE (EC) 325 MG TAB PO SCH (08:17)
[2016-02-28] MEDS: LISINOPRIL 5 MG TAB PO SCH (08:18)
[2016-02-28] MEDS: VALPROIC ACID LIQUID CUP 250 MG/5 ML CUP PO SCH ×2 (08:19→12:48)
[2016-02-28] MEDS ORDERED: APIX5TAB PO (09:33)
[2016-02-28] MEDS ORDERED: APIX2.5T PO (09:33)
[2016-02-28 10:27] LABS: BASOPHILS % 0.4 % (0.0-2.0); EOSINOPHILS # 0.3 10^3/ul (0.0-0.5); EOSINOPHILS % 2.4 % (0.0-7.0); HEMATOCRIT 34.7 % (42.0-52.0); HEMOGLOBIN 11.6 g/dl (14.0-18.0); LYMPHOCYTES # 2.5 10^3/ul (0.8-2.9); LYMPHOCYTES % 21.3 % (15.0-51.0); MEAN CORPUSCULAR HEMOGLOBIN 30.6 pg (29.0-33.0); MEAN CORPUSCULAR HGB CONC 33.3 g/dl (32.0-37.0); MEAN CORPUSCULAR VOLUME 91.7 fl (82.0-101.0); MEAN PLATELET VOLUME 8.1 fl (7.4-10.4); MONOCYTE # 1.9 10^3/ul (0.3-0.9); MONOCYTES % 16.2 % (0.0-11.0); NEUTROPHIL # 7.1 10^3/ul (1.6-7.5); NEUTROPHILS % 59.7 % (39.0-77.0); PLATELET COUNT 455 10^3/UL (140-440); RED BLOOD COUNT 3.79 10^6/ul (4.70-6.10); RED CELL DISTRIBUTION WIDTH 16.1 % (11.5-14.5); UNCORRECTED WBC 11.9 10^3/ul (4.8-10.8); WHITE BLOOD COUNT 11.9 10^3/ul (4.8-10.8)
[2016-02-28 10:28] LABS: POTASSIUM 4.7 mmol/L (3.5-5.1)
[2016-02-28] MEDS ORDERED: APIXABAN 5 MG TABLET PO SCH (10:30)
--- NOTE | 2016-02-28 10:30 | DS ---
DATE OF ADMISSION: 02/21/2016 DATE OF DISCHARGE: ADDENDUM: The patient remains in the hospital because of his insurance company's difficulty and lack of cooperation in providing transportation to discharge the patient home with an ambulance. The [facility] transplant network manager worked on obtaining authorization and was unsuccessful. Hopefully the patient will be able to be transported home by ambulance today. I have reviewed with the patient and he remains well and stable for discharge. No further instructions are given. For details of admission and ho spital course, as well as discharge medications, please review the patient's chart and my previous d ischarge summaries. Final diagnosis remains the same. The patient is to be started on Eliquis whil e in-house. Dictated By: DICKSON HONG MD, BA/NTS Conf#: [id number] DID#: [id number]
[2016-02-28 10:31] LABS: CALCIUM 8.6 mg/dl (8.4-10.2); CREATININE 0.57 mg/dl (0.61-1.24)
[2016-02-28 10:58] LABS: CONDITION 1; LH ANALYZER COMMENTS 1
[2016-03-06] MEDS ORDERED: APIXABAN 5 MG TABLET PO SCH (09:00)
== END 2016-02-28 16:30 | disposition home health service (06) | DRG 515 ==
LOC: E/R 13:28 → MS1 16:23
PROVIDERS: ADMIT Hospitalist; ATTEND Hospitalist
PROC: 30233N1 Transfusion of Nonautologous Red Blood Cells into Peripheral Vein, Percutaneous Approach (ICD-10-PCS; 2016-02-22)
PROC: 30233K1 Transfusion of Nonautologous Frozen Plasma into Peripheral Vein, Percutaneous Approach (ICD-10-PCS; 2016-02-22)
PROC: 06H03DZ Insertion of Intraluminal Device into Inferior Vena Cava, Percutaneous Approach (ICD-10-PCS; principal; 2016-02-23 13:00)
DX: S72.141A Displaced intertrochanteric fracture of right femur, initial encounter for closed fracture (principal); G93.40 Encephalopathy, unspecified; E87.0 Hyperosmolality and hypernatremia; I82.511 Chronic embolism and thrombosis of right femoral vein; E11.9 Type 2 diabetes mellitus without complications; D64.9 Anemia, unspecified; J98.11 Atelectasis; I25.2 Old myocardial infarction; I69.920 Aphasia following unspecified cerebrovascular disease; Z74.01 Bed confinement status; Z87.891 Personal history of nicotine dependence; Z95.1 Presence of aortocoronary bypass graft; Z79.4 Long term (current) use of insulin; K21.9 Gastro-esophageal reflux disease without esophagitis; Z79.02 Long term (current) use of antithrombotics/antiplatelets; I69.021 Dysphasia following nontraumatic subarachnoid hemorrhage; E86.0 Dehydration; X58.XXXA Exposure to other specified factors, initial encounter; Y92.009 Unspecified place in unspecified non-institutional (private) residence as the place of occurrence of the external cause
CPT/HCPCS: 36430; 37191; 71010; 73550; 80048; 80053; 80061; 80164; 81001; 81003; 82962; 83036; 83735; 84100; 84439; 84443; 85025; 85610; 85730; 86850; 86900; 86901; 86920; 87075; 92610; 93005; 93306; 93971; 94664; 95819; 97166; A4310; C1769; C1880; J1644; J1815; J2270; J2405; J7030; J7040; J7070; P9016; P9059; Q9967

== ENCOUNTER 2017-03-09 20:36 | Inpatient (IN) | END 2017-03-15 20:45 | disposition home health service (06) | DRG 637 ==

== ENCOUNTER 2017-08-13 09:21 | Inpatient (IN) | END 2017-09-18 11:15 | disposition EXP | DRG 853 ==